=== PATIENT | female | born 1990 | race Caucasian/White ===

== ENCOUNTER → 2019-04-15 | Outpatient (REF) | payer OTHER | LOC: M LAB REF 11:34 | PROVIDERS: ATTEND Physician Assistant | DX: R50.9 Fever, unspecified (principal); R05 Cough ==

== ENCOUNTER 2020-11-11 08:09 | Inpatient (IN) | payer OTHER ==
[~2020-11-11] VITALS: Ht 167.6 cm; Wt 67.8 kg
[2020-11-11 08:46] LABS: BASO # 0.1 10^3/uL (0.0-0.2); BASO % 0.2 % (0.0-1.0); HEMATOCRIT 42.9 % (36.0-47.0); HEMOGLOBIN 14.2 g/dl (12.0-15.5); LYMPH # 1.2 10^3/uL (1.5-5.0); LYMPH % 4.3 % (24.0-44.0); MEAN CORPUSCULAR HEMOGLOBIN 32.1 pg (27.0-33.0); MEAN CORPUSCULAR HGB CONC 33.1 g/dl (32.0-36.5); MEAN CORPUSCULAR VOLUME 96.8 fl (80.0-96.0); MONO # 2.7 10^3/uL (0.0-0.8); MONO % 9.2 % (2.0-8.0); NEUTROPHILS # 24.7 10^3/uL (1.5-8.5); NEUTROPHILS % 85.2 % (36.0-66.0); PLATELET COUNT, AUTOMATED 265 10^3/uL (150-450); RED BLOOD COUNT 4.43 10^6/uL (4.00-5.40); WHITE BLOOD COUNT 28.9 10^3/uL (4.0-10.0)
[2020-11-11 09:10] LABS: HCG, SERUM QUALITATIVE NEGATIVE (NEGATIVE)
--- NOTE | 2020-11-11 09:12 | REP ---
INDICATION: Drug Overdose. COMPARISON: No comparison study. TECHNIQUE: Portable upright AP chest radiograph. FINDINGS: The lungs are well inflated and free of infiltrate. Pleural angles are sharp. Heart size is normal. Pulmonary vasculature is not increased. IMPRESSION: No active disease. <Electronically signed by Casimiro Adamson > 11/11/20 0943
[2020-11-11 09:22] LABS: ACETAMINOPHEN LEVEL < 2.0 UG/ML (10.0-30.0); ALT/SGPT 49 U/L (12-78); BILIRUBIN,DIRECT 0.1 MG/DL (0.0-0.2); BILIRUBIN,TOTAL 0.4 MG/DL (0.2-1.0); BLOOD UREA NITROGEN 11 MG/DL (7-18); CALCIUM LEVEL 8.8 MG/DL (8.5-10.1); CARBON DIOXIDE LEVEL 27 MEQ/L (21-32); CHLORIDE LEVEL 98 MEQ/L (98-107); CK-MB VALUE MASS 115.1 NG/ML (<3.6); CPK CREATINE PHOSPHOKINASE 5655 U/L (26-192); CREATININE FOR GFR 0.94 MG/DL (0.55-1.30); ETHYL ALCOHOL (ETHANOL) < 0.003 % (0.000-0.010); GLOMERULAR FILTRATION RATE > 60.0 (>60); GLUCOSE, FASTING 78 MG/DL (70-100); MB/CK RELATIVE INDEX 2.04 (< OR =4); POTASSIUM SERUM 4.3 MEQ/L (3.5-5.1); SALICYLATE LEVEL 2.8 MG/DL (5.0-30.0); SODIUM LEVEL 135 MEQ/L (136-145); THYROID STIMULATING HORMONE 0.565 uIU/ML (0.358-3.740); TOTAL PROTEIN 7.2 GM/DL (6.4-8.2); TROPONIN I 0.07 NG/ML (< 0.10)
[2020-11-11 09:28] LABS: ABG BASE EXCESS -2.5 (-2.0-2.0); ABG HCO3 21.8 MEQ/L (22.0-26.0); ABG O2 SATURATION 96.6 % (95.0-99.0); ABG PARTIAL PRESSURE CO2 36.2 mmHg (35.0-45.0); ABG PARTIAL PRESSURE O2 82.4 mmHg (75.0-100.0); ABG STANDARD HCO3 22.4 MEQ/L (22.0-26.0); ABG TOTAL CO2 22.9 MEQ/L (22.0-29.0); ABG pH (ARTERIAL) 7.398 UNITS (7.350-7.450)
[2020-11-11 09:32] LABS: RSV AMPLIFICATION NEGATIVE (NEGATIVE)
[2020-11-11] MEDS ORDERED: NS 1,000 ML IV SCH (09:35)
--- NOTE | 2020-11-11 10:12 | REPVR ---
PROCEDURE INFORMATION: Exam: CT Head Without Contrast Exam date and time: 11/11/2020 9:48 AM Age: 30 years old Clinical indication: Altered mental status/memory loss TECHNIQUE: Imaging protocol: Computed tomography of the head without contrast. Radiation optimization: All CT scans at this facility use at least one of these dose optimization techniques: automated exposure control; mA and/or kV adjustment per patient size (includes targeted exams where dose is matched to clinical indication); or iterative reconstruction. COMPARISON: No relevant prior studies available. FINDINGS: Brain: There is no acute intracranial hemorrhage. No extra-axial fluid collection. No evidence of acute infarct. Longoria white differentiation is intact. There is no evidence of mass. There is no mass effect or midline shift. Cerebral ventricles: No ventriculomegaly. Paranasal sinuses: Visualized sinuses are unremarkable. No fluid levels. Mastoid air cells: No significant mastoid effusion. Bones/joints: No acute fracture. Soft tissues: Unremarkable as visualized. IMPRESSION: No evidence of acute intracranial abnormality. No acute hemorrhage. No evidence of acute infarct or mass. Electronically signed by: Naz Maurer On 11/11/2020 10:12:11 AM
[2020-11-11] MEDS ORDERED: LEXA1TAB PO (10:36)
[2020-11-11] MEDS ORDERED: VITMTA PO (10:36)
[2020-11-11] MEDS ORDERED: ZINC1TAB2 PO (10:36)
[2020-11-11] MEDS ORDERED: HOME MED LIST COMPLETE! XX SCH (10:40)
[2020-11-11 10:59] LABS: AMPHETAMINES LEVEL URINE NEGATIVE (NEGATIVE); BARBITURATES URINE NEGATIVE (NEGATIVE); BENZODIAZEPINES URINE NEGATIVE (NEGATIVE); CANNABINOIDS URINE POSITIVE (NEGATIVE); COCAINE METABOLITE URINE POSITIVE (NEGATIVE); METHADONE URINE NEGATIVE (NEGATIVE); OPIATES URINE NEGATIVE (NEGATIVE); PHENCYCLIDINE URINE NEGATIVE (NEGATIVE)
--- NOTE | 2020-11-11 11:11 | HPEPDOC ---
[facility] Medical History & Physical Date of Admission Nov 11, 2020 Date of Service: Nov 11, 2020 History and Physical CHIEF COMPLAINT: Heroin overdose HISTORY OF PRESENT ILLNESS: Patient is a 30-year-old female with a suspected history of depression, was brought to ER by EMS. She was found by her mother on the floor unresponsive who began CPR. Upon arrival by EMS they gave her 2 mg of Narcan and revived her. Upon arrival the patient was tachycardic to 145 in sinus rhythm, blood pressure was 119/79. She was slightly hypoxic to the mid 80s and was placed on 2 L nasal cannula. She regained consciousness and has been alert and oriented speaking and answering questions appropriately. Is presently on room air 93% saturation. Patient states that she found the half bag of heroin in her sister's room and was afraid for her sister's wellbeing. She however was afraid to flush the drugs down the toilet as she was afraid it would poison the water supply. She therefore chose to snort it herself. She is visibly distressed and has intermittent bouts of crying with tears and then becomes immediately complete composed. She denies any IV drug use or sharing needles in the past. Patient denies any chest pain palpitation shortness of breath nausea vomiting diarrhea subjective fevers or chills. She however is endorsing left leg numbness extending from her left hip down to her toes. She also reports low back pain 5/10. She had a negative CT scan of the head without contrast. Patient states that she had difficulty ambulating from her bed to the bathroom. She however is voiding spontaneously without any urinary retention. She states that her left labia majora is also numb. PAST MEDICAL HISTORY: Suspected depression, polysubstance PAST SURGICAL HISTORY: She denies prior surgical history SOCIAL HISTORY: Patient denies smoking Patient denies etoh use Patient denies illicit drug use ALLERGIES: Please see below. REVIEW OF SYSTEMS: 10 point ROS was conducted, relevant findings are noted in the HPI HOME MEDICATIONS: Please see below. PHYSICAL EXAMINATION: VITAL SIGNS: please see below General: NAD, comfortable HEENT: PERRLA, EOMI, sclerae clear Neck: supple, normal ROM, no JVD Respiratory: lungs CTAB, no wheeze, no rales, no crackles CVS: RRR, normal S1, S2, no murmurs Abdo: soft, no masses, no hepatosplenomegaly, BS+, no rebound tenderness Rectal Examination: performed with female aircraft technician Devi Goff present at bedside. Normal voluntary anal tone. Preserved peroneal sensation. Extremities: no edema, pulses 2+ MSK: no joint deformities, normal ROM. Lumbar pain to palpation at ~L4-L5. Neuro: no focal neuro deficits, moving all 4 extremities, CN2-12 intact. Strenght 5/5 in bilateral upper extremities, 5/5 in R lower extremity, 4/5 L lower extremity. On re-examination, L lower extremity strength improved to 5/5 without limitation. No nystagmus. Ambulating with limp. Psych: calm, cooperative, AAO x 3 LABORATORY DATA: See below. IMAGING: Lumbar Spine MRI (11/11/20): FINDINGS: Examination is motion limited. Vertebral body height and AP alignment is preserved. There is disc desiccation and disc space narrowing at L5-S1. Degenerative endplate signal at L5-S1. Negative for discitis/osteomyelitis. No definite epidural fluid collection. Conus medullaris terminates at L1-L2. No gross pathologic intrathecal enhancement. L1-L2: No definite significant central or foraminal stenosis. L2-L3: No definite significant central or foraminal stenosis. L3-L4: No definite significant central or foraminal stenosis. L4-L5: Mild bilateral facet joint arthropathy without definite significant central canal stenosis. Suspect mild bilateral foraminal stenosis. L5-S1: [id number]-maqelcbk disc bulge and bilateral facet joint arthropathy. No significant central canal stenosis. There is moderate to severe bilateral foraminal stenosis. IMPRESSION: 1. Examination is significantly motion limited. 2. No gross acute abnormality. 3. Degenerative change most prominent L5-S1 where there is moderate to severe bilateral foraminal stenosis. 4. No significant central canal compromise throughout the lumbar spine. L Leg Venous Duplex (11/11/20) IMPRESSION: No evidence of deep vein thrombosis. MRI brain wo contrast (11/11/20): FINDINGS: Image quality is degraded by motion. Brain: There is no extra-axial collection or intra-axial mass. Normal parenchymal signal is preserved. There is no diffusion restriction. Cerebral ventricles: Normal. No ventriculomegaly. Bones/joints: Unremarkable. Paranasal sinuses: There is mild ethmoid mucosal thickening. Mastoid air cells: Normal as visualized. No mastoid effusion. Orbital cavity: Unremarkable. Soft tissues: Unremarkable. IMPRESSION: Motion degraded examination. No acute abnormality. CT head without contrast on 11/11/2020 FINDINGS: Brain: There is no acute intracranial hemorrhage. No extra-axial fluid collection. No evidence of acute infarct. Longoria white differentiation is intact. There is no evidence of mass. There is no mass effect or midline shift. Cerebral ventricles: No ventriculomegaly. Paranasal sinuses: Visualized sinuses are unremarkable. No fluid levels. Mastoid air cells: No significant mastoid effusion. Bones/joints: No acute fracture. Soft tissues: Unremarkable as visualized. IMPRESSION: No evidence of acute intracranial abnormality. No acute hemorrhage. No evidence of acute infarct or mass CXR 11/11/2020 FINDINGS: The lungs are well inflated and free of infiltrate. Pleural angles are sharp. Heart size is normal. Pulmonary vasculature is not increased. IMPRESSION: No active disease. MICROBIOLOGY: Please see below. ASSESSMENT: 30-year-old female admitted after heroin overdose and provided by rehabilitation attendant with 2 mg of Narcan intranasally. Patient displaying racing thoughts and injurious behavior. Psychiatry has been consulted. Patient will be admitted to hospitalist service. Patient also endorses left leg weakness and numbness difficulty ambulating as well as signs of peritoneal anesthesia. Due to this patient will receive an MRI of the lumbar spine with and without contrast to rule out cauda equina. . PLAN: Heroin overdose: Patient displaying self-injurious behavior, stated she was referred to poison water supply by flushing the drugs down the toilet therefore she decided to snort them instead. Patient requires one-to-one sitter. Discussed with Dr. Vann from psychiatry. Consult placed. Patient may require inpatient psychiatric admission after she is medically stable. Elevated trop: initial trop 0.07, repeat 0.12. In setting of chest compressions. EKG showing sinus tachycardia, no acute ischemic changes. Perform serial trops. No chest pain reported. Will obtain 2D echo to r/o pericardial effusion from possible cardiac contusion. Rhabdomyolysis: CK 5000. We will continue with IV hydration. We will monitor renal function with serial BMPs. Left leg numbness and weakness with signs of perineal anesthesia: Patient reports numbness in the left labia majora as well as numbness of the leg extending down from the hip to the toes. Per ER staff she was seen ambulating with a limp. Initial exam showed 4/5 strength in the L lower extremity. On re- examination 5/5 strength was seen in all 4 extremities. Even though the patient displays 5 out of 5 strength in the bed we will proceed with MRI of the lumbar spine to make sure she does not have cauda equina or a spinal abscess. 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 Rectal exam shows normal voluntary anal tone, and preserved sensation of the perineum. Patient is not experiencing fecal incontinence or urinary retention. I attempted to transfer the patient to [facility] for spinal surgery eval, ([facility] had no available beds), and discussed the findings with Dr. Nazario. I endorsed the mentioned neurological findings. Dr. Nazario believed that no red-flag symptoms are present, and patient does not require urgent surgical intervention. We will perform serial neuro exams on the lower extremities and monitor for any worsening neuro symptoms. Left tongue numbness: Patient had a negative CT scan. She has equal and bilateral pupils without slurred speech or uvula deviation P duration. However given the fact that the patient is a drug user and had a recent fall we will make sure this patient did not have an acute CVA from possible embolic stroke. Leukocytosis/SIRS: Patient was admitted with leukocytosis of 20.9. Suspect likely reactive. Meets SIRS criteria. Left shift of neutrophils 85.2%. Patient denies any subjective fever chills cough dysuria diarrhea. Blood culture sent from the ER. Will start on empiric vancomycin and cefepime until we have ruled out infection. Dispo: admission expect to last > 2 midnights Vital Signs Vital Signs Date Time Temp Pulse Resp B/P (MAP) Pulse Ox O2 Delivery O2 Flow Rate FiO2 11/11/20 09:46 110 93 11/11/20 09:45 104/56 (72) 11/11/20 08:24 97.0 20 Room Air Laboratory Data Labs 24H Laboratory Tests 2 11/11/20 08:27: Immature Granulocyte % (Auto) 1.1, Neutrophils (%) (Auto) 85.2H, Lymphocytes (%) (Auto) 4.3L, Monocytes (%) (Auto) 9.2H, Eosinophils (%) (Auto) 0.0, Basophils (%) (Auto) 0.2, Neutrophils # (Auto) 24.7H, Lymphocytes # (Auto) 1.2L, Monocytes # (Auto) 2.7H, Eosinophils # (Auto) 0.0, Basophils # (Auto) 0.1, Nucleated Red Blood Cells % (auto) 0.0, Anion Gap 10, Glomerular Filtration Rate > 60.0, Calcium Level 8.8, Total Bilirubin 0.4, Direct Bilirubin 0.1, Aspartate Amino Transf (AST/SGOT) 134H, Alanine Aminotransferase (ALT/SGPT) 49, Alkaline Phosphatase 83, Total Creatine Kinase 5655H, Creatine Kinase MB 115.1H, Creatine Kinase MB Relative Index 2.04, Troponin I 0.07, Total Protein 7.2, Albumin 4.0, Albumin/Globulin Ratio 1.3, Thyroid Stimulating Hormone (TSH) 0.565, Human Chorionic Gonadotropin, Qual NEGATIVE, Salicylates Level 2.8L, Urine Opiates Screen NEGATIVE, Urine Methadone Screen NEGATIVE, Acetaminophen Level < 2.0L, Urine Barbiturates Screen NEGATIVE, Urine Phencyclidine Screen NEGATIVE, Urine Amphetamines Screen NEGATIVE, Urine Benzodiazepines Screen NEGATIVE, Urine Cocaine Metabolite Screen POSITIVEH, Urine Cannabinoids Screen POSITIVEH, Ethyl Alcohol Level < 0.003, Coronavirus (COVID-19)(PCR) NEGATIVE, Influenza Type A (RT-PCR) NEGATIVE, Influenza Type B (RT-PCR) NEGATIVE, Respiratory Syncytial Virus (PCR) NEGATIVE 11/11/20 08:38: Bedside Glucose (Misc Panel) 82 11/11/20 09:03: Blood Gas Bicarbonate Standard 22.4, Arterial Blood pH 7.398, Arterial Blood Partial Pressure CO2 36.2, Arterial Blood Partial Pressure O2 82.4, Arterial Blood Total CO2 22.9, Arterial Blood HCO3 21.8L, Arterial Blood Base Excess - 2.5L, Arterial Blood Oxygen Saturation 96.6 CBC/BMP Laboratory Tests 11/11/20 08:27 Microbiology Microbiology 11/11/20 Blood Culture, Received Pending 11/11/20 Blood Culture, Received Pending Home Medications Scheduled Escitalopram Oxalate (Lexapro) 10 Mg Tablet, 15 MG PO DAILY Multivitamins (Thera M Plus Tablet) 1 Each Tablet, 1 TAB PO DAILY Zinc (Zinc) 50 Mg Tablet, 50 MG PO DAILY Allergies Coded Allergies: Penicillins (Verified Allergy, Unknown, UNKNOWN REACTION, 11/11/20) BLAISE GRAY MD Nov 11, 2020 11:11
--- NOTE | 2020-11-11 11:42 | ECGEPIP ---
[facility] - ED Test Date: 2020-11-11 Pat Name: CARMEN SANTANA Department: Room: - Gender: Female Grade Checker: DARION : 1990 Requested By: FLASH Lazo Order Number: [id number] Reading MD: Jaylin Uribe Measurements Intervals [place] Rate: 124 P: 79 NC: 120 QRS: 78 QRSD: 86 T: 56 QT: 332 QTc: 476 Interpretive Statements Sinus tachycardia Possible Left atrial enlargement No prior Electronically Signed on 11-11-2020 11:42:22 EDT by Jaylin Uribe
--- NOTE | 2020-11-11 11:56 | REP ---
INDICATION: L leg numbness. COMPARISON: None. TECHNIQUE: AP pelvis view. FINDINGS: The bony pelvic ring is intact. There are small bone islands in the left acetabular region and in the right ischium. Sacrum and SI joints are intact. Symphysis pubis is unremarkable. Femoral heads are smooth and rounded and hip joint space is preserved. No femoral fracture is seen. IMPRESSION: No acute bony abnormality. <Electronically signed by Casimiro Adamson > 11/11/20 [id number]
--- NOTE | 2020-11-11 11:57 | REP ---
INDICATION: L leg numbness. COMPARISON: None. TECHNIQUE: Four views of the left femur are provided. FINDINGS: The views of the left femur demonstrate normal bones, joints, and soft tissues. No fracture or subluxation is seen. No opaque foreign body noted. There is a small bone island in the left acetabulum. IMPRESSION: Negative left femur series. <Electronically signed by Casimiro Adamson > 11/11/20 0257
[2020-11-11] MEDS: NS 1,000 ML IV SCH (12:00)
[2020-11-11] MEDS ORDERED: PROHANCE 279.3MG/ML 15ML VIAL As Ordered ONE (12:32)
[2020-11-11 13:20] VITALS: BP 136/75
--- NOTE | 2020-11-11 13:33 | REPVR ---
PROCEDURE INFORMATION: Exam: MR Head Without Contrast Exam date and time: 11/11/2020 11:24 AM Age: 30 years old Clinical indication: Altered mental status/memory loss; Confusion or disorientation; Patient HX: Overdose; Additional info: L leg numbness and weakness, perineal numbness. R/O cauda eq TECHNIQUE: Imaging protocol: MR of the head without contrast. COMPARISON: CT Head without contrast 11/11/2020 9:56 AM FINDINGS: Image quality is degraded by motion. Brain: There is no extra-axial collection or intra-axial mass. Normal parenchymal signal is preserved. There is no diffusion restriction. Cerebral ventricles: Normal. No ventriculomegaly. Bones/joints: Unremarkable. Paranasal sinuses: There is mild ethmoid mucosal thickening. Mastoid air cells: Normal as visualized. No mastoid effusion. Orbital cavity: Unremarkable. Soft tissues: Unremarkable. IMPRESSION: Motion degraded examination. No acute abnormality. Electronically signed by: Ibeth Harrell On 11/11/2020 13:32:50 PM
[2020-11-11] MEDS: CEFEPIME HCL 1 GM in D5W MINI-BAG PLUS 50 ML IV SCH (14:57)
[2020-11-11] MEDS ORDERED: VANCOMYCIN HCL 1,000 MG, VIAL MATE ADAPTER 1 EACH in NS 250 ML IV ONE (15:00)
[2020-11-11 16:00] VITALS: BP 111/62
[2020-11-11] MEDS ORDERED: LORazepam 2 MG/ML VIAL IV PRN (16:15)
--- NOTE | 2020-11-11 18:08 | MHCRPDOC ---
[facility] Consultation Consultation DATE OF CONSULTATION: 11/11/20 CONSULTATION REQUESTED BY: Dr Elmo ACOSTA REASON FOR CONSULTATION: Evaluate the patient for depression and possible suicide attempt. . RELEVANT HISTORY: Her identifying data : She is a 30-year-old female living with her parents was brought to the emergency room for overdose of heroin. She is currently in PCU treated medically. History patient was evaluated staff was consulted during my evaluation. Patient is labile crying and sobbing 1 minute and then immediately becomes composed and sometimes inappropriate in her answers. She denies suicide attempt and states the reason she overdosed because she wanted to know how her sister felt when using drugs she also reports that her sister is drug user and has been using it extensively patient was brought to the emergency room she had CPR and not to revive her after her arrival she was CK2 ICU from there to PCU Patient has a history of depression she was on Lexapro 20 mg daily and the compliance of the medication is questionable patient reports she was also on Adderall she has been diagnosed with ADHD in the past ,denies any history of suicide attempt in the past she also denies any history of psychiatric hospitalizations she denies history of alcohol or drug use ,only reports She uses marijuana every day for her anxiety Mental Status Examination: Patient lying in bed with one-to-one sitter in the room she was cooperative made good eye contact psychomotor activity is increased speech is hyperverbal mood is depressed affect is labile , thought content she is preoccupied denies any suicidal homicidal ideas thought process dramatic circumstantial at times at times she is sobbing and crying suddenly she becomes composed her insight and judgment are limited her she is oriented to time place and person her attention and concentration are good her memory immediate remote recent are good. Diagnosis major depressive disorder Overdose on opioids cannabis use disorder rule out opioid dependence Assessment patient attempted overdose which almost killed her. Considering the severity of the overdose the possibility of suicide attempt cannot be ruled out Patient currently is severely depressed compliant with her medication is questionable Plan: I recommend that she be transferred to psychiatric unit once she is medically stable Continue one-to-one observation Continue Lexapro 20 mg once daily Add Seroquel 12.5 mg at night Patient can be transferred when she is medically stable. . Vital Signs Vital Signs Date Time Temp Pulse Resp B/P (MAP) Pulse Ox O2 Delivery O2 Flow Rate FiO2 9/3/21 16:00 98.5 93 16 111/62 (78) 95 Nasal Cannula 2.0 Laboratory Data 24H Labs Laboratory Tests 2 11/11/20 08:27: Immature Granulocyte % (Auto) 1.1, Neutrophils (%) (Auto) 85.2H, Lymphocytes (%) (Auto) 4.3L, Monocytes (%) (Auto) 9.2H, Eosinophils (%) (Auto) 0.0, Basophils (%) (Auto) 0.2, Neutrophils # (Auto) 24.7H, Lymphocytes # (Auto) 1.2L, Monocytes # (Auto) 2.7H, Eosinophils # (Auto) 0.0, Basophils # (Auto) 0.1, Nucleated Red Blood Cells % (auto) 0.0, Anion Gap 10, Glomerular Filtration Rate > 60.0, Calcium Level 8.8, Total Bilirubin 0.4, Direct Bilirubin 0.1, Aspartate Amino Transf (AST/SGOT) 134H, Alanine Aminotransferase (ALT/SGPT) 49, Alkaline Phosphatase 83, Total Creatine Kinase 5655H, Creatine Kinase MB 115.1H, Creatine Kinase MB Relative Index 2.04, Troponin I 0.07, Total Protein 7.2, Albumin 4.0, Albumin/Globulin Ratio 1.3, Thyroid Stimulating Hormone (TSH) 0.565, Human Chorionic Gonadotropin, Qual NEGATIVE, Salicylates Level 2.8L, Urine Opiates Screen NEGATIVE, Urine Methadone Screen NEGATIVE, Acetaminophen Level < 2.0L, Urine Barbiturates Screen NEGATIVE, Urine Phencyclidine Screen NEGATIVE, Urine Amphetamines Screen NEGATIVE, Urine Benzodiazepines Screen NEGATIVE, Urine Cocaine Metabolite Screen POSITIVEH, Urine Cannabinoids Screen POSITIVEH, Ethyl Alcohol Level < 0.003, Coronavirus (COVID-19)(PCR) NEGATIVE, Influenza Type A (RT-PCR) NEGATIVE, Influenza Type B (RT-PCR) NEGATIVE, Respiratory Syncytial Virus (PCR) NEGATIVE 11/11/20 08:38: Bedside Glucose (Misc Panel) 82 11/11/20 09:03: Blood Gas Bicarbonate Standard 22.4, Arterial Blood pH 7.398, Arterial Blood Partial Pressure CO2 36.2, Arterial Blood Partial Pressure O2 82.4, Arterial Blood Total CO2 22.9, Arterial Blood HCO3 21.8L, Arterial Blood Base Excess - 2.5L, Arterial Blood Oxygen Saturation 96.6 11/11/20 15:00: Methicillin-Resist S.aureus DNA PCR NOT DETECTED 11/11/20 15:21: Urine Color COLORLESS, Urine Appearance CLEAR, Urine pH 6.0, Urine Specific [place] 1.001L, Urine Protein NEGATIVE, Urine Glucose (UA) NEGATIVE, Urine Ketones 1+H, Urine Blood NEGATIVE, Urine Nitrite NEGATIVE, Urine Bilirubin NEGATIVE, Urine Urobilinogen 0.2, Urine Leukocyte Esterase NEGATIVE, Urine WBC (Auto) 0, Urine RBC (Auto) 0, Urine Hyaline Casts (Auto) 0, Urine Bacteria (Auto) NEGATIVE, Urine Squamous Epithelial Cells 0, Urine Sperm (Auto) Home Medications Current Medications Current Medications Medications (Trade) Dose Ordered Sig/Juanjo Route PRN Reason Start Time Stop Time Status Last Admin Dose Admin Cefepime HCl 1 gm/ Dextrose 50 ml @ 100 mls/hr Q12H IV 11/11/20 14:00 11/11/20 14:57 Escitalopram Oxalate (Lexapro) 15 mg DAILY PO 11/12/20 09:00 Home Med (Home Med List Complete!) ASDIRECTED XX 11/11/20 10:40 11/11/20 10:40 DC Lorazepam (Ativan) 1 mg Q15MP PRN IV ANXIETY/AGITATION 11/11/20 16:15 Multivitamins (Theragram-M) 1 tab DAILY PO 11/12/20 09:00 Sodium Chloride 1,000 ml @ 125 mls/hr Q8H IV 11/11/20 12:00 11/11/20 12:00 Sodium Chloride 1,000 ml @ 150 mls/hr Q6H40M IV 11/11/20 09:35 11/11/20 12:03 DC 11/11/20 09:51 Vancomycin HCl 1000 mg/IV Miscellaneous Supplies 1 each/ Sodium Chloride 270 ml @ 270 mls/hr Q8H IV 11/11/20 19:00 Scheduled Escitalopram Oxalate (Lexapro) 10 Mg Tablet, 15 MG PO DAILY, (Reported) Multivitamins (Thera M Plus Tablet) 1 Each Tablet, 1 TAB PO DAILY, (Reported) Zinc (Zinc) 50 Mg Tablet, 50 MG PO DAILY, (Reported) Allergies Coded Allergies: Penicillins (Verified Allergy, Unknown, UNKNOWN REACTION, 11/11/20) JEREMIAS STARKEY MD Nov 11, 2020 18:08
[2020-11-11] MEDS: VANCOMYCIN HCL 1,000 MG, VIAL MATE ADAPTER 1 EACH in NS 250 ML IV SCH (18:38)
[2020-11-11 20:00] VITALS: BP 110/62
--- NOTE | 2020-11-11 20:04 | REPVR ---
PROCEDURE INFORMATION: Exam: MR Lumbar Spine Without and With Contrast Exam date and time: 11/11/2020 7:33 PM Age: 30 years old Clinical indication: Numbness; Additional info: L leg numbness and weakness, perineal numbness. R/O cauda eq TECHNIQUE: Imaging protocol: Multiplanar magnetic resonance images of the lumbar spine without and with intravenous contrast. Contrast material: PROHANCE; Contrast volume: 14 ml; Contrast route: INTRAVENOUS (IV); COMPARISON: CR Pelvis, complete 11/11/2020 11:25 AM FINDINGS: Examination is motion limited. Vertebral body height and AP alignment is preserved. There is disc desiccation and disc space narrowing at L5-S1. Degenerative endplate signal at L5-S1. Negative for discitis/osteomyelitis. No definite epidural fluid collection. Conus medullaris terminates at L1-L2. No gross pathologic intrathecal enhancement. L1-L2: No definite significant central or foraminal stenosis. L2-L3: No definite significant central or foraminal stenosis. L3-L4: No definite significant central or foraminal stenosis. L4-L5: Mild bilateral facet joint arthropathy without definite significant central canal stenosis. Suspect mild bilateral foraminal stenosis. L5-S1: Nytt-sk-wkdhfkwz disc bulge and bilateral facet joint arthropathy. No significant central canal stenosis. There is moderate to severe bilateral foraminal stenosis. IMPRESSION: 1. Examination is significantly motion limited. 2. No gross acute abnormality. 3. Degenerative change most prominent L5-S1 where there is moderate to severe bilateral foraminal stenosis. 4. No significant central canal compromise throughout the lumbar spine. Electronically signed by: Kilo Brambila On 11/11/2020 20:04:40 PM
[2020-11-11] MEDS: QUEtiapine FUMARATE 12.5 MG HALF-TAB PO SCH (21:05)
[2020-11-11] MEDS ORDERED: ACETAMINOPHEN TAB 650MG DOSE (2X325MG) PO ONE (21:25)
[2020-11-11] MEDS ORDERED: ASPIRIN 325 MG TAB PO ONE (21:55)
--- NOTE | 2020-11-11 22:23 | REPVR ---
PROCEDURE INFORMATION: Exam: US Duplex Left Lower Extremity Veins, Limited Exam date and time: 11/11/2020 10:06 PM Age: 30 years old Clinical indication: Pain; Leg, upper; Left; Additional info: Pain and numbness in left leg TECHNIQUE: Imaging protocol: Real-time Duplex ultrasound of the Left Lower Extremity with 2-D way scale, color Doppler flow and spectral waveform analysis with image documentation. Limited exam focused on the left lower extremity veins. COMPARISON: No relevant prior studies available. FINDINGS: Left deep veins: Unremarkable. The common femoral, femoral, proximal profunda femoral and popliteal veins are patent without thrombus. Normal Doppler waveforms. Normal compressibility and/or augmentation response. Left superficial veins: Unremarkable. Saphenofemoral junction is patent without thrombus. Soft tissues: Unremarkable. IMPRESSION: No evidence of deep vein thrombosis. Electronically signed by: Kilo Brambila On 11/11/2020 22:23:39 PM
[2020-11-12] VITALS: BP 96/55
[2020-11-12] MEDS: NS 1,000 ML IV SCH ×4 (01:54→23:19)
[2020-11-12] MEDS: CEFEPIME HCL 1 GM in D5W MINI-BAG PLUS 50 ML IV SCH ×2 (01:59→15:07)
[2020-11-12] MEDS: VANCOMYCIN HCL 1,000 MG, VIAL MATE ADAPTER 1 EACH in NS 250 ML IV SCH ×3 (02:56→18:31)
[2020-11-12 04:00] VITALS: BP 98/60
[2020-11-12 06:23] LABS: BASO % 0.3 % (0.0-1.0); EOS # 0.2 10^3/uL (0.0-0.5); EOS % 1.3 % (0.0-3.0); HEMATOCRIT 35.7 % (36.0-47.0); LYMPH # 2.4 10^3/uL (1.5-5.0); LYMPH % 18.2 % (24.0-44.0); MEAN CORPUSCULAR HEMOGLOBIN 31.4 pg (27.0-33.0); MEAN CORPUSCULAR HGB CONC 32.8 g/dl (32.0-36.5); MEAN CORPUSCULAR VOLUME 95.7 fl (80.0-96.0); MONO # 1.4 10^3/uL (0.0-0.8); MONO % 10.3 % (2.0-8.0); NEUTROPHILS # 9.2 10^3/uL (1.5-8.5); NEUTROPHILS % 69.5 % (36.0-66.0); PLATELET COUNT, AUTOMATED 215 10^3/uL (150-450); RED BLOOD COUNT 3.73 10^6/uL (4.00-5.40); WHITE BLOOD COUNT 13.2 10^3/uL (4.0-10.0)
[2020-11-12 06:43] LABS: HEMOGLOBIN 11.7 g/dl (12.0-15.5)
[2020-11-12 07:16] LABS: ALBUMIN 2.8 GM/DL (3.2-5.2); ALT/SGPT 104 U/L (12-78); BILIRUBIN,TOTAL 0.6 MG/DL (0.2-1.0); BLOOD UREA NITROGEN 4 MG/DL (7-18); CALCIUM LEVEL 7.8 MG/DL (8.5-10.1); CARBON DIOXIDE LEVEL 29 MEQ/L (21-32); CHLORIDE LEVEL 109 MEQ/L (98-107); CPK CREATINE PHOSPHOKINASE 8881 U/L (26-192); CREATININE FOR GFR 0.54 MG/DL (0.55-1.30); GLOMERULAR FILTRATION RATE > 60.0 (>60); GLUCOSE, FASTING 86 MG/DL (70-100); SODIUM LEVEL 141 MEQ/L (136-145); TOTAL PROTEIN 5.2 GM/DL (6.4-8.2)
[2020-11-12 08:18] VITALS: BP 95/53
[2020-11-12] MEDS: ESCITALOPRAM OXALATE 5MG TABLET (LEXAPRO) PO SCH (09:37)
[2020-11-12] MEDS: MULTIVITAMINS/MINERALS THERAP 1 TAB PO SCH (09:37)
--- NOTE | 2020-11-12 10:35 | REP ---
INDICATION: transaminitis. COMPARISON: None. TECHNIQUE: Ultrasound evaluation of the abdomen in multiple projections was performed. FINDINGS: The liver, gallbladder, pancreas and right kidney are unremarkable. The right kidney measures 10.7 x 4.5 x 3.7 cm. The common bile duct measures 3 mm in diameter. IMPRESSION: Normal limited abdominal ultrasound. <Electronically signed by Tiburcio Castro > 11/12/20 [id number]
[2020-11-12] MEDS: MAGIC MOUTHWASH SUSPENSION BTL SSP PRN ×2 (11:19→20:34)
[2020-11-12 11:37] VITALS: BP 119/73
--- NOTE | 2020-11-12 12:46 | IPNPDOC ---
Date Seen The patient was seen on 11/12/20. Progress Note SUBJECTIVE: Patient was seen examined at bedside. She is doing well. She is seen ambulating independently this morning with a slight limp. She tells me that she clearly has experienced an improvement in her left leg sensation she feels temperature and she feels pressure/touch. Her left labial numbness has resolved. Patient continues to have full control of bladder function and bowel function. She experiences no incontinence or retention of either. Patient states that her back pain has also resolved. Her tongue numbness is also resolved. She denies any chest pain palpitation shortness of breath fever chills. OBJECTIVE PHYSICAL EXAMINATION: VITAL SIGNS: please see below General: NAD, comfortable HEENT: PERRLA, EOMI, sclerae clear Neck: supple, normal ROM, no JVD Respiratory: lungs CTAB, no wheeze, no rales, no crackles CVS: RRR, normal S1, S2, no murmurs Abdo: soft, no masses, no hepatosplenomegaly, BS+, no rebound tenderness Extremities: no edema, pulses 2+ MSK: no joint deformities, normal ROM Neuro: no focal neuro deficits, moving all 4 extremities, CN2-12 intact. Stren gth 5/5 in all 4 extremities. There is slightly reduced sensation in the left leg extending from the hip down to the toes since his temperature. Senses fine touch. No nystagmus. Psych: calm, cooperative, AAO x 3 LABORATORY DATA, IMAGING STUDIES, MICROBIOLOGY: Please see below. Echocardiogram: Ordered on 11/12/2020. DVT prophylaxis ordered?: Yes, mechanical ASSESSMENT AND PLAN: ASSESSMENT: 30-year-old female admitted after heroin overdose and provided by chip person with 2 mg of Narcan intranasally. Patient displaying racing thoughts and injurious behavior. Psychiatry has been consulted. Patient will be admitted to hospitalist service. Patient also endorses left leg weakness and numbness difficulty ambulating as well as signs of peritoneal anesthesia. Due to this patient will receive an MRI of the lumbar spine with and without contrast to rule out cauda equina. . PLAN: Heroin overdose: Patient displaying self-injurious behavior, stated she was referred to poison water supply by flushing the drugs down the toilet therefore she decided to snort them instead. Patient requires one-to-one sitter. Discussed with Dr. Vann from psychiatry. Consult placed. Patient may require inpatient psychiatric admission after she is medically stable. Elevated trop: initial trop 0.07, repeat 0.12. In setting of chest compressions. EKG showing sinus tachycardia, no acute ischemic changes. Perform serial trops. No chest pain reported. Will obtain 2D echo to r/o pericardial effusion from p ossible cardiac contusion. Discussed with Dr. Zacarias, stat echo ordered. Rhabdomyolysis: CK 5000 increased to 8881. We will continue with IV hydration. We will monitor renal function with serial BMPs. Left leg numbness and weakness with signs of perineal anesthesia: Patient reports numbness in the left labia majora as well as numbness of the leg extending down from the hip to the toes. Per ER staff she was seen ambulating with a limp. Initial exam showed 4/5 strength in the L lower extremity. On re- examination 5/5 strength was seen in all 4 extremities. Even though the patient displays 5 out of 5 strength in the bed we will proceed with MRI of the lumbar spine to make sure she does not have cauda equina or a spinal abscess. 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 Rectal exam shows normal voluntary anal tone, and preserved sensation of the perineum. Patient is not experiencing fecal incontinence or urinary retention. I attempted to transfer the patient to [facility] for spinal surgery eval, ([facility] had no available beds), and discussed the findings with Dr. Nazario. I endorsed the mentioned neurological findings. Dr. Nazario believed that no red-flag symptoms are present, and patient does not require urgent surgical intervention. We will perform serial neuro exams on the lower extremities and monitor for any worsening neuro symptoms. Reexamination on 11/12/2020, patient states that her numbness in the left leg has improved. Her left labial numbness has resolved. She has 5 out of 5 strength bilaterally. And continues to have full control of her urine and her bowels. No retention or incontinence of both. I discussed this once again with Dr. Nazario at [facility], Department of neurosurgery. He recommends no need for acute transfer for surgical intervention. Recommends referral to outpatient neurosurgery clinic. Left tongue numbness: Patient had a negative CT scan. She has equal and bilateral pupils without slurred speech or uvula deviation P duration. However given the fact that the patient is a drug user and had a recent fall we will make sure this patient did not have an acute CVA from possible embolic stroke. Numbness resolved Leukocytosis/SIRS: Patient was admitted with leukocytosis of 20.9. Suspect likely reactive. Meets SIRS criteria. Left shift of neutrophils 85.2%. Patient denies any subjective fever chills cough dysuria diarrhea. Blood culture sent from the ER. Will start on empiric vancomycin and cefepime until we have ruled out infection. Dispo: admission expect to last > 2 midnights VS, I&O, 24H, Fishbone Vital Signs/I&O Vital Signs Date Time Temp Pulse Resp B/P (MAP) Pulse Ox O2 Delivery O2 Flow Rate FiO2 11/12/20 11:37 98.6 88 18 119/73 (88) 92 Room Air 11/12/20 04:00 2.0 I&O- Last 24 Hours up to 6 AM 11/12/20 06:00 Intake Total 2680 ml Output Total 2200 ml Balance 480 ml Laboratory Data 24H LABS Laboratory Tests 2 11/11/20 15:00: Methicillin-Resist S.aureus DNA PCR NOT DETECTED 11/11/20 15:21: Urine Color COLORLESS, Urine Appearance CLEAR, Urine pH 6.0, Urine Specific Berkey 1.001L, Urine Protein NEGATIVE, Urine Glucose (UA) NEGATIVE, Urine Ke tones 1+H, Urine Blood NEGATIVE, Urine Nitrite NEGATIVE, Urine Bilirubin NEGATIVE, Urine Urobilinogen 0.2, Urine Leukocyte Esterase NEGATIVE, Urine WBC (Auto) 0, Urine RBC (Auto) 0, Urine Hyaline Casts (Auto) 0, Urine Bacteria (Auto) NEGATIVE, Urine Squamous Epithelial Cells 0, Urine Sperm (Auto) 11/11/20 20:11: Troponin I 0.11#H 11/11/20 23:25: Troponin I 0.10 11/12/20 04:52: Immature Granulocyte % (Auto) 0.4, Neutrophils (%) (Auto) 69.5H, Lymphocytes (%) (Auto) 18.2L, Monocytes (%) (Auto) 10.3H, Eosinophils (%) (Auto) 1.3, Basophils (%) (Auto) 0.3, Neutrophils # (Auto) 9.2H, Lymphocytes # (Auto) 2.4, Monocytes # (Auto) 1.4H, Eosinophils # (Auto) 0.2, Basophils # (Auto) 0.0, Nucleated Red Blood Cells % (auto) 0.0, Anion Gap 3L, Glomerular Filtration Rate > 60.0, Calcium Level 7.8L, Magnesium Level 2.0, Total Bilirubin 0.6, Aspartate Amino Transf (AST/SGOT) 322H, Alanine Aminotransferase (ALT/SGPT) 104H, Alkaline Phosphatase 52, Total Creatine Kinase 8881H, Total Protein 5.2#L, Albumin 2.8#L, Albumin/Globulin Ratio 1.2 CBC/BMP Laboratory Tests 11/12/20 04:52 Microbiology Microbiology 11/11/20 Blood Culture - Preliminary, Resulted No growth after 24 hours . All specim... 11/11/20 Blood Culture - Preliminary, Resulted No growth after 24 hours . All specim... BLAISE GRAY MD Nov 12, 2020 12:46
[2020-11-12 15:40] VITALS: BP 118/74
--- NOTE | 2020-11-12 18:45 | ECGEPIP ---
[facility] Test Date: 2020-11-11 Pat Name: CARMEN SANTANA Department: Room: [place] [address] Gender: Female No Experience: [place] : 1990 Requested By: BLAISE GRAY Order Number: [id number] Reading MD: Gibran Diamond Measurements Intervals [place] Rate: 101 P: 77 LA: 114 QRS: 80 QRSD: 88 T: 51 QT: 352 QTc: 456 Interpretive Statements Sinus tachycardia Otherwise normal EKG No significant change when compared to prior tracing of 11/11/2020 at 08:27 Electronically Signed on 11-12-2020 18:44:47 EDT by Gibran Diamond
[2020-11-12 20:00] VITALS: BP 123/85
[2020-11-12] MEDS: QUEtiapine FUMARATE 12.5 MG HALF-TAB PO SCH (20:34)
--- NOTE | 2020-11-12 23:56 | ECHO ---
ECHOCARDIOGRAM DATE OF PROCEDURE: 11/12/2020 Age: 30 Gender: Female Height: 168 cm Weight: 71 kg REFERRING PHYSICIAN: Dr. Elmo Camarena INDICATION: Abnormal EKG MEASUREMENTS: IVS 0.8 cm LV 4.4 cm LVPW 0.9 cm LA 2.9 cm Aorta 2.6 cm Left atrium volume index 17 IVC 2.4 cm Mitral E wave velocity 80 A wave 40 E prime septal 15 E prime lateral 23 FINDINGS: This study is of fair technical quality. Patient is in sinus rhythm with ventricular rate around 100 beats per minute. Left ventricle is normal size and overall normal systolic function, estimated LVEF 60-65%. No segmental wall motion abnormalities are appreciated. Right ventricle also has normal size and systolic function. Both atria are normal. Aortic, mitral and tricuspid valves appear normal. The pulmonic valve was not well seen. No pericardial effusion is noted. Inferior vena cava is dilated and has no appreciable collapse with inspiration, indicative of elevated central venous pressure. Doppler interrogation revealed competent aortic valve, trace mitral and tricuspid insufficiency. Mitral inflow pattern and tissue Doppler imaging of mitral annulus revealed normal diastolic function. CONCLUSIONS: 1. This study is of fair but adequate technical quality, underlying sinus rhythm with ventricular rate around 100 beats per minute. 2. Normal LV size, systolic and diastolic function. 3. No significant valvular disease. 4. Likely elevated central venous pressure. 5. Unable to estimate pulmonary artery pressure, but no signs to suggest pulmonary hypertension. MTDD
[2020-11-13] MEDS: CEFEPIME HCL 1 GM in D5W MINI-BAG PLUS 50 ML IV SCH ×2 (02:01→13:49)
[2020-11-13] MEDS: VANCOMYCIN HCL 1,000 MG, VIAL MATE ADAPTER 1 EACH in NS 250 ML IV SCH ×3 (03:13→18:58)
[2020-11-13 04:00] VITALS: BP 126/81
[2020-11-13 05:24] LABS: BASO # 0.1 10^3/uL (0.0-0.2); BASO % 0.5 % (0.0-1.0); EOS # 0.3 10^3/uL (0.0-0.5); EOS % 2.5 % (0.0-3.0); HEMATOCRIT 38.3 % (36.0-47.0); HEMOGLOBIN 12.6 g/dl (12.0-15.5); LYMPH # 3.1 10^3/uL (1.5-5.0); MEAN CORPUSCULAR HEMOGLOBIN 31.4 pg (27.0-33.0); MEAN CORPUSCULAR HGB CONC 32.9 g/dl (32.0-36.5); MEAN CORPUSCULAR VOLUME 95.5 fl (80.0-96.0); MONO # 1.1 10^3/uL (0.0-0.8); MONO % 8.8 % (2.0-8.0); NEUTROPHILS # 8.3 10^3/uL (1.5-8.5); NEUTROPHILS % 63.7 % (36.0-66.0); PLATELET COUNT, AUTOMATED 227 10^3/uL (150-450); RED BLOOD COUNT 4.01 10^6/uL (4.00-5.40)
[2020-11-13 06:09] LABS: ALBUMIN 2.7 GM/DL (3.2-5.2); ALT/SGPT 103 U/L (12-78); BILIRUBIN,TOTAL 0.7 MG/DL (0.2-1.0); BLOOD UREA NITROGEN 2 MG/DL (7-18); CALCIUM LEVEL 8.2 MG/DL (8.5-10.1); CARBON DIOXIDE LEVEL 30 MEQ/L (21-32); CHLORIDE LEVEL 111 MEQ/L (98-107); CPK CREATINE PHOSPHOKINASE 5907 U/L (26-192); CREATININE FOR GFR 0.49 MG/DL (0.55-1.30); GLOMERULAR FILTRATION RATE > 60.0 (>60); GLUCOSE, FASTING 82 MG/DL (70-100); POTASSIUM SERUM 3.9 MEQ/L (3.5-5.1); SODIUM LEVEL 144 MEQ/L (136-145); TOTAL PROTEIN 5.6 GM/DL (6.4-8.2)
[2020-11-13 07:56] VITALS: BP 127/81
[2020-11-13] MEDS: MULTIVITAMINS/MINERALS THERAP 1 TAB PO SCH (08:42)
[2020-11-13] MEDS: ESCITALOPRAM OXALATE 5MG TABLET (LEXAPRO) PO SCH (08:42)
[2020-11-13] MEDS ORDERED: NICOTINE 7 MG/24 HR TRANSDERMAL TD SCH (09:00)
[2020-11-13] MEDS: NS 1,000 ML IV SCH ×2 (10:34→12:00)
[2020-11-13 11:01] VITALS: BP 126/81
--- NOTE | 2020-11-13 11:53 | IPNPDOC ---
Date Seen The patient was seen on 11/13/20. Progress Note SUBJECTIVE: Patient was seen examined at bedside. She is doing well. Patient ambulating independently. She states that her left leg numbness has entirely resolved. She states that she has baseline strength and sensation. She denies any chest pain palpitations shortness of breath nausea vomiting or diarrhea. OBJECTIVE PHYSICAL EXAMINATION: VITAL SIGNS: please see below General: NAD, comfortable HEENT: PERRLA, EOMI, sclerae clear Neck: supple, normal ROM, no JVD Respiratory: lungs CTAB, no wheeze, no rales, no crackles CVS: RRR, normal S1, S2, no murmurs Abdo: soft, no masses, no hepatosplenomegaly, BS+, no rebound tenderness Extremities: no edema, pulses 2+ MSK: no joint deformities, normal ROM Neuro: no focal neuro deficits, moving all 4 extremities, CN2-12 intact. Strength 5/5 in all 4 extremities. There is slightly reduced sensation in the left leg extending from the hip down to the toes since his temperature. Senses fine touch. No nystagmus. Psych: calm, cooperative, AAO x 3 LABORATORY DATA, IMAGING STUDIES, MICROBIOLOGY: Please see below. Echocardiogram: Ordered on 11/12/2020. DVT prophylaxis ordered?: Yes, mechanical ASSESSMENT AND PLAN: ASSESSMENT: 30-year-old female admitted after heroin overdose and provided by bias machine operator helper with 2 mg of Narcan intranasally. Patient displaying racing thoughts and injurious behavior. Psychiatry has been consulted. Patient will be admitted to hospitalist service. Patient also endorses left leg weakness and numbness difficulty ambulating as well as signs of peritoneal anesthesia. Due to this patient will receive an MRI of the lumbar spine with and without contrast to rule out cauda equina. . PLAN: Heroin overdose: Patient displaying self-injurious behavior, stated she was referred to poison water supply by flushing the drugs down the toilet therefore she decided to snort them instead. Patient requires one-to-one sitter. Discussed with Dr. Vann from psychiatry. Consult placed. Patient may require inpatient psychiatric admission after she is medically stable. Elevated trop: initial trop 0.07, repeat 0.11, 0.10. In setting of chest compressions. EKG showing sinus tachycardia, no acute ischemic changes. Perform serial trops. No chest pain reported. Will obtain 2D echo to r/o pericardial effusion from possible cardiac contusion. Teslascan has reviewed the echocardiogram states no abnormalities noted. Patient has no chest pain tachycardia has resolved. Rhabdomyolysis: CK 5000 increased to 8881. We will continue with IV hydration. We will monitor renal function with serial BMPs. Left leg numbness and weakness with signs of perineal anesthesia: Patient reports numbness in the left labia majora as well as numbness of the leg extending down from the hip to the toes. Per ER staff she was seen ambulating with a limp. Initial exam showed 4/5 strength in the L lower extremity. On re- examination 5/5 strength was seen in all 4 extremities. Even though the patient displays 5 out of 5 strength in the bed we will proceed with MRI of the lumbar spine to make sure she does not have cauda equina or a spinal abscess. MRI lumbar spine showing moderate to severe bilateral foraminal stenosis at L5-S1 l evel. Rectal exam shows normal voluntary anal tone, and preserved sensation of the perineum. Patient is not experiencing fecal incontinence or urinary retention. I attempted to transfer the patient to [facility] for spinal surgery eval, ([facility] had no available beds), and discussed the findings with Dr. Nazario. I endorsed the mentioned neurological findings. Dr. Nazario believed that no red-flag symptoms are present, and patient does not require urgent surgical intervention. We will perform serial neuro exams on the lower extremities and monitor for any worsening neuro symptoms. Reexamination on 11/12/2020, patient states that her numbness in the left leg has improved. Her left labial numbness has resolved. She has 5 out of 5 strength bilaterally. And continues to have full control of her urine and her bowels. No retention or incontinence of both. I discussed this once again with Dr. Nazario at [facility], Department of neurosurgery. He recommends no need for acute transfer for surgical intervention. Recommends referral to outpatient neurosurg yoly clinic. Patient's numbness of the left leg and left labia have resolved entirely. She has preserved 5 out of 5 strength Left tongue numbness: Patient had a negative CT scan. She has equal and bilateral pupils without slurred speech or uvula deviation P duration. However given the fact that the patient is a drug user and had a recent fall we will make sure this patient did not have an acute CVA from possible embolic stroke. Numbness resolved Leukocytosis/SIRS: Patient was admitted with leukocytosis of 20.9. Suspect likely reactive. Meets SIRS criteria. Left shift of neutrophils 85.2%. Patient denies any subjective fever chills cough dysuria diarrhea. Blood culture sent from the ER. Will start on empiric vancomycin and cefepime until we have ruled out infection. Dispo: admission expect to last > 2 midnights VS, I&O, 24H, Fishbone Vital Signs/I&O Vital Signs Date Time Temp Pulse Resp B/P (MAP) Pulse Ox O2 Delivery O2 Flow Rate FiO2 11/13/20 11:01 98.2 95 18 126/81 (96) 96 Room Air 11/12/20 04:00 2.0 I&O- Last 24 Hours up to 6 AM 11/13/20 06:00 Intake Total 3930 ml Output Total 1200 ml Balance 2730 ml Laboratory Data 24H LABS Laboratory Tests 2 11/12/20 18:02: Vancomycin Level Trough 13.3 11/13/20 04:58: Immature Granulocyte % (Auto) 0.5, Neutrophils (%) (Auto) 63.7, Lymphocytes (%) (Auto) 24.0, Monocytes (%) (Auto) 8.8H, Eosinophils (%) (Auto) 2.5, Basophils (%) (Auto) 0.5, Neutrophils # (Auto) 8.3, Lymphocytes # (Auto) 3.1, Monocytes # (Auto) 1.1H, Eosinophils # (Auto) 0.3, Basophils # (Auto) 0.1, Nucleated Red Blood Cells % (auto) 0.0, Anion Gap 3L, Glomerular Filtration Rate > 60.0, Calcium Level 8.2L, Magnesium Level 2.0, Total Bilirubin 0.7, Aspartate Amino Transf (AST/SGOT) 211H, Alanine Aminotransferase (ALT/SGPT) 103H, Alkaline Phosphatase 59, Total Creatine Kinase 5907H, Total Protein 5.6L, Albumin 2.7L, Albumin/Globulin Ratio 0.9L CBC/BMP Laboratory Tests 11/13/20 04:58 Microbiology Microbiology 11/11/20 Blood Culture - Preliminary, Resulted No Growth after 48 hours. All Specime... 11/11/20 Blood Culture - Preliminary, Resulted No Growth after 48 hours. All Specime... BLAISE GRAY MD Nov 13, 2020 11:53
[2020-11-13 15:22] VITALS: BP 138/92
[2020-11-13 20:00] VITALS: BP 142/96
[2020-11-13] MEDS: RAMELTEON 8 MG TAB (ROZEREM) PO PRN (21:44)
[2020-11-13] MEDS: QUEtiapine FUMARATE 12.5 MG HALF-TAB PO SCH (21:44)
[2020-11-14] VITALS: BP 118/75
[2020-11-14] MEDS: CEFEPIME HCL 1 GM in D5W MINI-BAG PLUS 50 ML IV SCH (02:11)
[2020-11-14] MEDS: VANCOMYCIN HCL 1,000 MG, VIAL MATE ADAPTER 1 EACH in NS 250 ML IV SCH (03:02)
[2020-11-14 04:00] VITALS: BP 121/87
[2020-11-14 06:06] LABS: BASO # 0.1 10^3/uL (0.0-0.2); BASO % 0.7 % (0.0-1.0); EOS # 0.3 10^3/uL (0.0-0.5); HEMATOCRIT 38.5 % (36.0-47.0); HEMOGLOBIN 12.9 g/dl (12.0-15.5); LYMPH # 2.5 10^3/uL (1.5-5.0); LYMPH % 22.9 % (24.0-44.0); MEAN CORPUSCULAR HEMOGLOBIN 31.2 pg (27.0-33.0); MEAN CORPUSCULAR HGB CONC 33.5 g/dl (32.0-36.5); MEAN CORPUSCULAR VOLUME 93.2 fl (80.0-96.0); MONO # 1.1 10^3/uL (0.0-0.8); MONO % 9.9 % (2.0-8.0); NEUTROPHILS # 6.9 10^3/uL (1.5-8.5); NEUTROPHILS % 63.1 % (36.0-66.0); PLATELET COUNT, AUTOMATED 263 10^3/uL (150-450); RED BLOOD COUNT 4.13 10^6/uL (4.00-5.40)
[2020-11-14 06:41] LABS: ALBUMIN 2.9 GM/DL (3.2-5.2); ALT/SGPT 95 U/L (12-78); BILIRUBIN,TOTAL 0.8 MG/DL (0.2-1.0); BLOOD UREA NITROGEN 4 MG/DL (7-18); CALCIUM LEVEL 8.4 MG/DL (8.5-10.1); CARBON DIOXIDE LEVEL 28 MEQ/L (21-32); CHLORIDE LEVEL 111 MEQ/L (98-107); CPK CREATINE PHOSPHOKINASE 3896 U/L (26-192); CREATININE FOR GFR 0.47 MG/DL (0.55-1.30); GLOMERULAR FILTRATION RATE > 60.0 (>60); GLUCOSE, FASTING 89 MG/DL (70-100); MAGNESIUM LEVEL 1.9 MG/DL (1.8-2.4); POTASSIUM SERUM 3.8 MEQ/L (3.5-5.1); SODIUM LEVEL 144 MEQ/L (136-145); TOTAL PROTEIN 5.7 GM/DL (6.4-8.2)
[2020-11-14] MEDS ORDERED: ISOVUE-370 76% 100ML VIAL As Ordered ONE (07:46)
[2020-11-14 07:52] VITALS: BP 131/81
--- NOTE | 2020-11-14 08:40 | REPVR ---
PROCEDURE INFORMATION: Exam: CTA Chest With Contrast Exam date and time: 11/14/2020 8:13 AM Age: 30 years old Clinical indication: Pain; Chest pressure; Additional info: R/O pe, HX of chest compression S/P drug od TECHNIQUE: Imaging protocol: Computed tomographic angiography of the chest with contrast. 3D rendering (Not supervised by radiologist): MIP reconstructed images were created by the technologist. Radiation optimization: All CT scans at this facility use at least one of these dose optimization techniques: automated exposure control; mA and/or kV adjustment per patient size (includes targeted exams where dose is matched to clinical indication); or iterative reconstruction. Contrast material: ISOVUE 370; Contrast volume: 75 ml; Contrast route: INTRAVENOUS (IV); COMPARISON: CR PORTABLE CHEST X-RAY 11/11/2020 8:56 AM FINDINGS: Pulmonary arteries: No pulmonary artery embolism identified. Aorta: No aortic aneurysm. No aortic dissection. Lungs: Central patchy airspace opacities left upper lobe and lingula. Pleural spaces: No pneumothorax. No pleural effusion. Heart: Normal. No pericardial effusion. Lymph nodes: No enlarged lymph nodes. Bones/joints: Unremarkable. No acute fracture. Soft tissues: Unremarkable. IMPRESSION: 1. No pulmonary artery embolism identified. 2. Central patchy airspace opacities left upper lobe and lingula. Pneumonitis is difficult to exclude. Clinical correlation is recommended. Electronically signed by: Robin Rojas On 11/14/2020 08:40:33 AM
--- NOTE | 2020-11-14 08:59 | REP ---
INDICATION: r/o dvt. COMPARISON: None. TECHNIQUE: 2D and pulse duplex and color Doppler evaluation of the right lower extremity venous system was performed. FINDINGS: Thorough evaluation of the deep venous system of the right lower extremity reveals no evidence of deep venous thrombosis. IMPRESSION: No evidence of deep venous thrombosis of the right lower extremity. <Electronically signed by Tiburcio Castro > 11/14/20 [id number]
[2020-11-14] MEDS: MULTIVITAMINS/MINERALS THERAP 1 TAB PO SCH (09:20)
[2020-11-14] MEDS: ESCITALOPRAM OXALATE 5MG TABLET (LEXAPRO) PO SCH (09:20)
[2020-11-14 12:00] VITALS: BP 129/81
--- NOTE | 2020-11-14 12:34 | IPNPDOC ---
Date Seen The patient was seen on 11/14/20. Progress Note SUBJECTIVE: Patient was seen examined at bedside. She is doing well. Patient ambulating independently. She states that her left leg numbness has entirely resolved. She states that she has baseline strength and sensation. She denies any chest pain palpitations shortness of breath nausea vomiting or diarrhea. OBJECTIVE PHYSICAL EXAMINATION: VITAL SIGNS: please see below General: NAD, comfortable HEENT: PERRLA, EOMI, sclerae clear Neck: supple, normal ROM, no JVD Respiratory: lungs CTAB, no wheeze, no rales, no crackles CVS: RRR, normal S1, S2, no murmurs Abdo: soft, no masses, no hepatosplenomegaly, BS+, no rebound tenderness Extremities: no edema, pulses 2+ MSK: no joint deformities, normal ROM Neuro: no focal neuro deficits, moving all 4 extremities, CN2-12 intact. Strength 5/5 in all 4 extremities. Intact sensation of both lower extremity to both final coarse touch. Has no limitation in range of motion. Psych: calm, cooperative, AAO x 3 LABORATORY DATA, IMAGING STUDIES, MICROBIOLOGY: Please see below. CT angio chest on 11/14/20: 1. No pulmonary artery embolism identified. 2. Central patchy airspace opacities left upper lobe and lingula. Pneumonitis is difficult to exclude. Clinical correlation is recommended. RLE venous duplex (11/14/20): No evidence of deep venous thrombosis of the right lower extremity. Echo from 11/12/20: 1. This study is of fair but adequate technical quality, underlying sinus rhythm with ventricular rate around 100 beats per minute. 2. Normal LV size, systolic and diastolic function. 3. No significant valvular disease. 4. Likely elevated central venous pressure. 5. Unable to estimate pulmonary artery pressure, but no signs to suggest pulmonary hypertension. DVT prophylaxis ordered?: Yes, mechanical ASSESSMENT AND PLAN: ASSESSMENT: 30-year-old female admitted after heroin overdose and provided by aerospace engineer with 2 mg of Narcan intranasally. Patient displaying racing thoughts and injurious behavior. Psychiatry has been consulted. Patient will be admitted to hospitalist service. Patient also endorses left leg weakness and numbness difficulty ambulating as well as signs of peritoneal anesthesia. Due to this patient will receive an MRI of the lumbar spine with and without contrast to rule out cauda equina. . PLAN: Heroin overdose: Patient displaying self-injurious behavior, stated she was referred to poison water supply by flushing the drugs down the toilet therefore she decided to snort them instead. Patient requires one-to-one sitter. Discussed with Dr. Vann from psychiatry. Consult placed. Patient is medically cleared for transfer to [facility]. Fortunately there were no beds available today. To discuss with psychiatry tomorrow morning. Elevated trop: initial trop 0.07, repeat 0.11, 0.10. In setting of chest compressions. EKG showing sinus tachycardia, no acute ischemic changes. Perform serial trops. No chest pain reported. Will obtain 2D echo to r/o pericardial effusion from possible cardiac contusion. Dr. Mayorga has reviewed the echocardiogram, states no abnormalities noted. Patient has no chest pain tachycardia has resolved. Rhabdomyolysis: CK has trended down to below 5000 decreasing with p.o. hydration. No muscle tenderness. Left leg numbness and weakness with signs of perineal anesthesia: Patient re ports numbness in the left labia majora as well as numbness of the leg extending down from the hip to the toes. Per ER staff she was seen ambulating with a limp. Initial exam showed 4/5 strength in the L lower extremity. On re- examination 5/5 strength was seen in all 4 extremities. Even though the patient displays 5 out of 5 strength in the bed we will proceed with MRI of the lumbar spine to make sure she does not have cauda equina or a spinal abscess. 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 Rectal exam shows normal voluntary anal tone, and preserved sensation of the perineum. Patient is not experiencing fecal incontinence or urinary retenti on. I attempted to transfer the patient to [facility] for spinal surgery eval, ([facility] had no available beds), and discussed the findings with Dr. Nazario. I endorsed the mentioned neurological findings. Dr. Nazario believed that no red-flag symptoms are present, and patient does not require urgent surgical intervention. We will perform serial neuro exams on the lower extremities and monitor for any worsening neuro symptoms. Reexamination on 11/12/2020, patient states that her numbness in the left leg has improved. Her left labial numbness has resolved. She has 5 out of 5 strength bilaterally. And continues to have full control of her urine and her bowels. No retention or incontinence of both. I discussed this once again with Dr. Head at [facility], Department of neurosurgery. He recommends no need for acute transfer for surgical intervention. Recommends referral to outpatient neurosurgery clinic. Patient's numbness of the left leg and left labia have resolved entirely. She has preserved 5 out of 5 strength. She was evaluated by physical therapy on 11/12/2020, showing no safety concerns in terms of physical ability. Left tongue numbness: Patient had a negative CT scan. She has equal and bilateral pupils without slurred speech or uvula deviation P duration. However given the fact that the patient is a drug user and had a recent fall we will make sure this patient did not have an acute CVA from possible embolic stroke. No acute findings were noted on MRI of the brain although there was motion artifact. Numbness resolved. Leukocytosis/SIRS: Patient was admitted with leukocytosis of 20.9. Suspect likely reactive. Meets SIRS criteria. Left shift of neutrophils 85.2%. Patient denies any subjective fever chills cough dysuria diarrhea. Blood culture sent from the ER. Will start on empiric vancomycin and cefepime until we have ruled out infection. We will stop IV antibiotics his white count has trended down patient has been afebrile blood cultures are thus far negative. Given questionable pneumonitis on CT angiogram we will continue with p.o. Augmentin and doxycycline Dispo: admission expect to last > 2 midnights. Patient is medically cleared to be transferred to [facility]. Unfortunately no beds available, will attempt to transfer on 11/15/2020. I updated the patient's mother, Pilar Luna ([phone]), and answered all questions in detail. I explained the need for [facility]. VS, I&O, 24H, Fishbone Vital Signs/I&O Vital Signs Date Time Temp Pulse Resp B/P (MAP) Pulse Ox O2 Delivery O2 Flow Rate FiO2 11/14/20 07:52 98.3 70 18 131/81 (98) 97 Room Air 11/12/20 04:00 2.0 I&O- Last 24 Hours up to 6 AM 11/14/20 06:00 Intake Total 2310 ml Output Total 2300 ml Balance 10 ml Laboratory Data 24H LABS Laboratory Tests 2 11/14/20 05:34: Immature Granulocyte % (Auto) 0.4, Neutrophils (%) (Auto) 63.1, Lymphocytes (%) (Auto) 22.9L, Monocytes (%) (Auto) 9.9H, Eosinophils (%) (Auto) 3.0, Basophils (%) (Auto) 0.7, Neutrophils # (Auto) 6.9, Lymphocytes # (Auto) 2.5, Monocytes # (Auto) 1.1H, Eosinophils # (Auto) 0.3, Basophils # (Auto) 0.1, Nucleated Red Blood Cells % (auto) 0.0, Anion Gap 5L, Glomerular Filtration Rate > 60.0, Calcium Level 8.4L, Magnesium Level 1.9, Total Bilirubin 0.8, Aspartate Amino Transf (AST/SGOT) 145H, Alanine Aminotransferase (ALT/SGPT) 95H, Alkaline Phosphatase 59, Total Creatine Kinase 3896H, Total Protein 5.7L, Albumin 2.9L, Albumin/Globulin Ratio 1.0L CBC/BMP Laboratory Tests 11/14/20 05:34 Microbiology Microbiology 11/11/20 Blood Culture - Preliminary, Resulted No Growth after 72 hours. All specime... 11/11/20 Blood Culture - Preliminary, Resulted No Growth after 72 hours. All specime... BLAISE GRAY MD Nov 14, 2020 12:33
[2020-11-14] MEDS: NICOTINE POLACRILEX 2 MG GUM PO PRN ×2 (13:26→17:13)
[2020-11-14] MEDS: LORazepam 1 MG TAB PO PRN (17:47)
[2020-11-14 20:00] VITALS: BP 130/73
[2020-11-14] MEDS: QUEtiapine FUMARATE 12.5 MG HALF-TAB PO SCH (21:06)
[2020-11-15 04:00] VITALS: BP 124/84
[2020-11-15 05:39] LABS: BASO # 0.1 10^3/uL (0.0-0.2); BASO % 0.7 % (0.0-1.0); EOS # 0.3 10^3/uL (0.0-0.5); HEMATOCRIT 43.5 % (36.0-47.0); HEMOGLOBIN 14.4 g/dl (12.0-15.5); LYMPH # 2.6 10^3/uL (1.5-5.0); LYMPH % 23.8 % (24.0-44.0); MEAN CORPUSCULAR HEMOGLOBIN 30.6 pg (27.0-33.0); MEAN CORPUSCULAR HGB CONC 33.1 g/dl (32.0-36.5); MEAN CORPUSCULAR VOLUME 92.6 fl (80.0-96.0); MONO # 1.1 10^3/uL (0.0-0.8); MONO % 10.3 % (2.0-8.0); NEUTROPHILS # 6.7 10^3/uL (1.5-8.5); NEUTROPHILS % 61.8 % (36.0-66.0); PLATELET COUNT, AUTOMATED 294 10^3/uL (150-450); WHITE BLOOD COUNT 10.9 10^3/uL (4.0-10.0)
[2020-11-15 06:47] LABS: ALBUMIN 3.2 GM/DL (3.2-5.2); ALT/SGPT 85 U/L (12-78); BILIRUBIN,TOTAL 0.6 MG/DL (0.2-1.0); BLOOD UREA NITROGEN 6 MG/DL (7-18); CALCIUM LEVEL 8.9 MG/DL (8.5-10.1); CARBON DIOXIDE LEVEL 28 MEQ/L (21-32); CHLORIDE LEVEL 107 MEQ/L (98-107); CREATININE FOR GFR 0.58 MG/DL (0.55-1.30); GLOMERULAR FILTRATION RATE > 60.0 (>60); GLUCOSE, FASTING 91 MG/DL (70-100); POTASSIUM SERUM 3.8 MEQ/L (3.5-5.1); SODIUM LEVEL 142 MEQ/L (136-145); TOTAL PROTEIN 6.3 GM/DL (6.4-8.2)
[2020-11-15 06:48] LABS: CPK CREATINE PHOSPHOKINASE 1901 U/L (26-192)
[2020-11-15 07:44] VITALS: BP 127/80
[2020-11-15] MEDS: MULTIVITAMINS/MINERALS THERAP 1 TAB PO SCH (10:11)
[2020-11-15] MEDS: ESCITALOPRAM OXALATE 5MG TABLET (LEXAPRO) PO SCH (10:11)
[2020-11-15] MEDS: NICOTINE POLACRILEX 2 MG GUM PO PRN ×2 (10:11→15:28)
--- NOTE | 2020-11-15 12:03 | IPNPDOC ---
Text Note Date of Service The patient was seen on 11/15/20. NOTE Subjective: No any acute events overnight, patient denied fever, chills, nausea, vomiting, legs numbness Objective: GENERAL APPEARANCE: NAD HEENT: no scleral icterus, no JVD, EOMI CARDIOVASCULAR: S1S2 LUNGS: CTA ABDOMEN: soft & not tender w palpation MUSCULOSKELETAL: no cyanosis, no swelling INTEGUMENT: no generalized pallor NEUROLOGICAL: cranial nerve function from 2-12 intact, follows commands, speech not dysarthric Assessment and plan 30-year-old female admitted after heroin overdose and provided by shingle carrier with 2 mg of Narcan intranasally. Patient displaying racing thoughts and injurious behavior. Patient was found to have rhabdomyolysis, heroin overdose and left leg numbness and weakness. Imaging showed bilateral foraminal stenosis at level L5-S1. Heroine overdose/suicidal ideation Await bed in [facility] Patient medically cleared to transfer Elevated troponin Most likely secondary to chest compressions Trended down Patient denied any chest pain Echo normal Rhabdomyolysis CPK trended down patient received IV fluid Left leg numbness and weakness Resolved MRI lumbar spine showing moderate to severe bilateral foraminal stenosis at L5- S1 level. Rectal exam shows normal voluntary anal tone, and preserved sensation of the perineum. Patient is not experiencing fecal incontinence or urinary retention. I attempted to transfer the patient to [facility] for spinal surgery evnv, ([facility] had no available beds), and discussed the findings with Dr. Nazario. I endorsed the mentioned neurological findings. Dr. Nazario believed that no red-flag symptoms are present, and patient does not require urgent surgical intervention. We will perform serial neuro exams on the lower extremities and monitor for any worsening neuro symptoms. Reexamination on 11/12/2020, patient states that her numbness in the left leg has improved. Her left labial numbness has resolved Follow-up with neurosurgeon in the outpatient settings No fecal or urine incontinence Left arm numbness Imaging study negative for stroke Numbness resolved Leukocytosis Most likely reactive Patient received empiric treatment with vancomycin and cefepime. Patient afebrile, normotensive. Patient does not have any cough or sputum production Improved Disposition Await transfer to [facility]. Patient will be transferred to [facility] VS,Emperatriz, I+O VS, Christiee, I+O Laboratory Tests 11/15/20 05:10 Vital Signs Date Time Temp Pulse Resp B/P (MAP) Pulse Ox O2 Delivery O2 Flow Rate FiO2 11/15/20 07:44 98.5 68 18 127/80 (96) 98 Room Air 11/12/20 04:00 2.0 I&O- Last 24 Hours up to 6 AM 11/15/20 06:00 Intake Total 360 ml Output Total 0 ml Balance 360 ml MATT SWAIN DO Nov 15, 2020 12:03
[2020-11-15] MEDS: LORazepam 1 MG TAB PO PRN (12:44)
[2020-11-15] MEDS ORDERED: LORazepam 1 MG TAB PO PRN (12:50)
--- NOTE | 2020-11-15 19:21 | DS.PDOC ---
Discharge Summary General Date of Admission Nov 11, 2020 at 11:02 Date of Discharge 11/15/20 Discharge Summary PROCEDURES PERFORMED DURING STAY: [None]. ADMITTING DIAGNOSES: Heroin overdose Elevated troponin Rhabdomyolysis Left leg numbness and weakness Left tongue numbness Leukocytosis/SIRS DISCHARGE DIAGNOSES: Heroin overdose Elevated troponin Rhabdomyolysis Left leg numbness and weakness Left tongue numbness Leukocytosis/SIRS COMPLICATIONS/CHIEF COMPLAINT: Heroin Overdose, Leukocytosis, Rhabdomyolysis. HISTORY OF PRESENT ILLNESS: 30-year-old female admitted after heroin overdose and provided by confectionery laboratory manager with 2 mg of Narcan intranasally. Patient displaying racing thoughts and injurious behavior. Psychiatry has been consulted. Patient will be admitted to hospitalist service. Patient also endorses left leg weakness and numbness difficulty ambulating as well as signs of peritoneal an esthesia. Due to this patient will receive an MRI of the lumbar spine with and without contrast to rule out cauda equina. HOSPITAL COURSE: During the hospital stay the following issue addressed Heroin overdose: Patient displaying self-injurious behavior, stated she was refe rred to poison water supply by flushing the drugs down the toilet therefore she decided to snort them instead. Patient requires one-to-one sitter. Discussed with Dr. Vann from psychiatry. Consult placed. Patient is medically cleared for transfer to [facility]. Elevated trop: initial trop 0.07, repeat 0.11, 0.10. In setting of chest compressions. EKG showing sinus tachycardia, no acute ischemic changes. Perform serial trops. No chest pain reported. Will obtain 2D echo to r/o pericardial effusion from possible cardiac contusion. Dr. Mayorga has reviewed the echocardiogram, states no abnormalities noted. Patient has no chest pain tachycardia has resolved. Rhabdomyolysis: CK has trended down to below 5000 decreasing with p.o. hydration. No muscle tenderness. Left leg numbness and weakness with signs of perineal anesthesia: Patient reports numbness in the left labia majora as well as numbness of the leg extending down from the hip to the toes. Per ER staff she was seen ambulating with a limp. Initial exam showed 4/5 strength in the L lower extremity. On re- examination 5/5 strength was seen in all 4 extremities.. 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 Rectal exam shows normal voluntary anal tone, and preserved sensation of the perineum. Patient is not experiencing fecal incontinence or urinary retention. I attempted to transfer the patient to [facility] for spinal surgery eval, ([facility] had no available beds), and discussed the findings with Dr. Nazario. I endorsed the mentioned neurological findings. Dr. Nazario believed that no red-flag symptoms are present, and patient does not require urgent cain rgical intervention. We will perform serial neuro exams on the lower extremities and monitor for any worsening neuro symptoms. Reexamination on 11/12/2020, patient states that her numbness in the left leg has improved. Her left labial numbness has resolved. She has 5 out of 5 strength bilaterally. And continues to have full control of her urine and her bowels. No retention or incontinence of both. I discussed this once again with Dr. Head at [facility], Department of neurosurgery. He recommends no need for acute transfer for surgical intervention. Recommends referral to outpatient neurosurgery clinic. Patient's numbness of the left leg and left labia have resolved entirely. She has preserved 5 out of 5 strength. She was evaluated by physical therapy on 11/12/2020, showing no safety concerns in terms of physical ability. Left tongue numbness: Patient had a negative CT scan. She has equal and bilateral pupils without slurred speech or uvula deviation P duration. However given the fact that the patient is a drug user and had a recent fall we will make sure this patient did not have an acute CVA from possible embolic stroke. No acute findings were noted on MRI of the brain although there was motion artifact. Numbness resolved. Leukocytosis/SIRS: Patient was admitted with leukocytosis of 20.9. Suspect likely reactive. Meets SIRS criteria. Left shift of neutrophils 85.2%. Patient denies any subjective fever chills cough dysuria diarrhea. Blood culture sent from the ER. Will start on empiric vancomycin and cefepime until we have ruled out infection. We will stop IV antibiotics his white count has trended down patient has been afebrile blood cultures are thus far negative. Given questionable pneumonitis on CT angiogram we will continue with p.o. Augmentin and doxycycline DISCHARGE MEDICATIONS: Please see below. ALLERGIES: Please see below. PHYSICAL EXAMINATION ON DISCHARGE: . VITAL SIGNS: please see below General: NAD, comfortable HEENT: PERRLA, EOMI, sclerae clear Neck: supple, normal ROM, no JVD Respiratory: lungs CTAB, no wheeze, no rales, no crackles CVS: RRR, normal S1, S2, no murmurs Abdo: soft, no masses, no hepatosplenomegaly, BS+, no rebound tenderness Extremities: no edema, pulses 2+ MSK: no joint deformities, normal ROM Neuro: no focal neuro deficits, moving all 4 extremities, CN2-12 intact[address] Str ength 5/5 in all 4 extremities. Intact sensation of both lower extremity to both final coarse touch. Has no limitation in range of motion. Psych: calm, cooperative, AAO x 3 LABORATORY DATA: Please see below. IMAGING: CT angio chest on 11/14/20: 1. No pulmonary artery embolism identified. 2. Central patchy airspace opacities left upper lobe and lingula. Pneumonitis is difficult to exclude. Clinical correlation is recommended. RLE venous duplex (11/14/20): No evidence of deep venous thrombosis of the right lower extremity. Echo from 11/12/20: 1. This study is of fair but adequate technical quality, underlying sinus rhythm with ventricular rate around 100 beats per minute. 2. Normal LV size, systolic and diastolic function. 3. No significant valvular disease. 4. Likely elevated central venous pressure. 5. Unable to estimate pulmonary artery pressure, but no signs to suggest pulmonary hypertension. PROGNOSIS: Fair ACTIVITY: [As tolerated]. DIET: Regular DISPOSITION: [facility] DISCHARGE CONDITION: [Stable]. TIME SPENT ON DISCHARGE:40minutes. Vital Signs/I&Os Vital Signs Date Time Temp Pulse Resp B/P (MAP) Pulse Ox O2 Delivery O2 Flow Rate FiO2 11/15/20 07:44 98.5 68 18 127/80 (96) 98 Room Air 11/12/20 04:00 2.0 I&O- Last 24 Hours up to 6 AM 11/15/20 06:00 Intake Total 360 ml Output Total 0 ml Balance 360 ml Laboratory Data Labs 24H Laboratory Tests 2 11/15/20 05:10: Immature Granulocyte % (Auto) 0.4, Neutrophils (%) (Auto) 61.8, Lymphocytes (%) (Auto) 23.8L, Monocytes (%) (Auto) 10.3H, Eosinophils (%) (Auto) 3.0, Basophils (%) (Auto) 0.7, Neutrophils # (Auto) 6.7, Lymphocytes # (Auto) 2.6, Monocytes # (Auto) 1.1H, Eosinophils # (Auto) 0.3, Basophils # (Auto) 0.1, Nucleated Red Blood Cells % (auto) 0.0, Anion Gap 7L, Glomerular Filtration Rate > 60.0, Calcium Level 8.9, Magnesium Level 2.0, Total Bilirubin 0.6, Aspartate Amino Transf (AST/SGOT) 93H, Alanine Aminotransferase (ALT/SGPT) 85H, Alkaline Phosphatase 61, Total Creatine Kinase 1901H, Total Protein 6.3L, Albumin 3.2, Albumin/Globulin Ratio 1.0L CBC/BMP Laboratory Tests 11/15/20 05:10 Microbiology Microbiology 11/11/20 Blood Culture - Preliminary, Resulted No Growth after 72 hours. All specime... 11/11/20 Blood Culture - Preliminary, Resulted No Growth after 72 hours. All specime... Discharge Medications Scheduled Escitalopram Oxalate (Lexapro) 10 Mg Tablet, 15 MG PO DAILY, (Reported) Multivitamins (Thera M Plus Tablet) 1 Each Tablet, 1 TAB PO DAILY, (Reported) Zinc (Zinc) 50 Mg Tablet, 50 MG PO DAILY, (Reported) Allergies Coded Allergies: Penicillins (Verified Allergy, Unknown, UNKNOWN REACTION, 11/11/20) MATT SWAIN DO Nov 15, 2020 19:21
[2020-11-15] MEDS: QUEtiapine FUMARATE 12.5 MG HALF-TAB PO SCH (21:31)
[2020-11-15] MEDS: RAMELTEON 8 MG TAB (ROZEREM) PO PRN (21:31)
[2020-11-17] MEDS ORDERED: NICO2GUM PO (15:10)
[2020-11-17] MEDS ORDERED: BUPR-69 PO (15:10)
== END 2020-11-16 00:32 | DRG 271 ==
LOC: M ED 08:09 → EDBD 08:09 → M ED INP 11:02 → ENRESERV 11:37 → M PCU 13:16
PROVIDERS: ADMIT Family Medicine; ATTEND Internal Medicine
DX: T40.1X1A Poisoning by heroin, accidental (unintentional), initial encounter (principal); M62.82 Rhabdomyolysis; R20.0 Anesthesia of skin; Z20.822 Contact with and (suspected) exposure to COVID-19; Z79.899 Other long term (current) drug therapy; Z88.0 Allergy status to penicillin; F32.9 Major depressive disorder, single episode, unspecified; F12.10 Cannabis abuse, uncomplicated; D72.829 Elevated white blood cell count, unspecified

== ENCOUNTER 2020-11-15 19:27 | Inpatient (IN) | payer OTHER ==
[~2020-11-15 19:27] MED LIST: LEXA1TAB PO; VITMTA PO; ZINC1TAB2 PO
[2020-11-15] MEDS ORDERED: MAALOX 30 ML SUSP *UDC PO PRN (23:50)
[2020-11-15] MEDS ORDERED: MOM 30ML SUSPENSION UDC PO PRN (23:50)
[2020-11-15] MEDS ORDERED: ACETAMINOPHEN TAB 650MG DOSE (2X325MG) PO PRN (23:50)
[2020-11-16] MEDS: OLANZapine ORAL DISINTEGRATING TAB 5MG PO PRN ×3 (00:54→23:56)
[2020-11-16] MEDS: traZODone 50 MG TAB PO PRN ×2 (00:54→21:41)
[2020-11-16 02:04] VITALS: BP 120/82
[2020-11-16] MEDS ORDERED: HOME MED LIST COMPLETE! XX SCH (11:55)
[2020-11-16] MEDS: hydrOXYzine 50 MG TAB PO PRN (12:28)
--- NOTE | 2020-11-16 14:13 | MHHPEPDOC ---
General Date Of Admission: Nov 16, 2020 Legal Status: 9.39 Chief Complaint Patient took an overdose of Heroin . History of Present Illness HISTORY OF THE PRESENT ILLNESS: Patient is a 30 -year-old single, unemployed, domiciled , female, who took an overdose of her sister's heroin. Patient was brought to the emergency room where she received CPR and had to be revived upon her arrival, she was admitted to ICU and from there was downgraded to PCU patient was directly admitted to psychiatry after she was medically stabilized on a medical-surgical floor. She states, "I made a stupid mistake and bad choice and had taken heroin out of my sister's room. I took it to see the appeal, which was a terrible idea." She reports that she does not have prior drug history and that she was not suicidal. Patient denies that this was a suicide attempt and according to insulting psychiatrist patient stated that the reason for her overdose was because she wanted know how her sister felt when using drugs. She reports that her sister is a drug user and has been using it extensively. Psychiatric Review of Systems Depression (2 or more weeks): denies Danyelle (4 or more days of): irritable/elevated mood, distractibility, engages in risky behavior Psychosis: denies PTSD: history of trauma Anxiety: gen/non-specific anxiety, situational anxiety, panic attacks (history) Anxiety/ 6 months or more of: muscle tension Past Psychiatric History Previous Psychiatric Diagnosis: History of Depression, ADHD Previous Psychiatric Admissions: This is the first admission Suicide Attempts: S/P Heroin Overdose Psychiatric Follow-up: History of services at [facility] Dr. Elias Psychiatric medications: Lexapro, Adderall Past Medical History Medical Problems Chronic Pain (Hips, lower back, shoulders, weak knees and ankles) Head Injury: Yes (Cheerleading njury - concussion) Seizures: Yes (had a seizure when she was in shower in Fall 2013, ) Hospitalizations: Yes (childbirth and current) Surgeries: Yes Family Medical/Psychiatric HX Medical Problems Biological Father - chronic pain Mother - HTN, Anxiety Sister - Bipolar, Substance Use Disorder (Olanzapine) Psychiatric Disorders: Yes Addiction: Yes Suicide Attemps/Completions: No Addiction History nicotine (smoking 1/2 pack per day), opioids (states this overdose was her first attempt), other (Cannabis) Social History Childhood: Born in [place], grew up in [facility]. She is the oldest of 3 children (2 girls and 1 boy) Describes her childhood as "loving" Did well in school. Abuse/Trauma: PTSD history Current Living Situation: Currently lives with parents. Education: Graduated high school and some college. 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 Social Support: Parents supportive Legal: Denies Marital: , 1 child (8 years old) Mental Status Examination General Appearance: unkempt, disheveled, appears stated age, hospital scubs/clothing Demeanor: hostile (mildly), mistrustful, guarded, other (irritable and superficial) Activity: agitated, hostile Behavior: uncooperative, agitated Speech: clear Mood: irritable Affect: constricted Thought Process: logical/linear Thought Content (Aggressive): none reported Perception (Hallucinations): none reported Perception (Other): none reported Cognition (Impairment of): none reported Cognition(Intelligence Est.): average Oriented: Awake, Alert, Oriented times three Insight: poor Judgment: Poor Psychosis: Denies Diagnoses Unspecified mood disorder Rule out bipolar 2 disorder Opioid use disorder cannabis use disorder Nicotine use disorder Unspecified anxiety disorder ADHD History of PTSD A-FIB/CHADSVASC A-FIB History Current/History of A-Fib/PAF?: No Current PO Anticoag Therapy: No Assessment Patient is a 30-year-old single, unemployed, domiciled, female who was brought to [facility] after taking an overdose of her sister's heroin which she reports was her first use of it patient was initially admitted to ICU and then downgraded to PCU. She is admitted to psychiatry for her overdose which she reports was not a suicidal attempt. Patient presents in the interview is possibly being hypomanic, she was quite labile in her interview. Smiling and 1 minute and then crying in the next minute. Patient reports that she takes Lexapro but is willing to trial Wellbutrin because she is trying to quit smoking. I discussed with her bipolar symptoms that she is exhibiting she denies that she has any bipolar symptoms but she admits that her sister is diagnosed with bipolar. 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 " Patient was mildly grandiose in her interview, appeared to have racing thoughts, and was very labile. Patient agreed to take Wellbutrin 50 mg daily stating she wants to quit smoking. She will be afforded the following individual therapy, group therapy, social and milieu therapy. Patient to be discharged when she is stable Per staff, patient is requesting Lexapro, Wellbutrin, Ativan and Adderall. Initial Treatment Plan 1. Patient was admitted on a [9.39] status. 2. Complete history was obtained. 3. With patients permission, family will be contacted and database will be expanded. 4. Patients medication regimen will be reviewed and changed accordingly. 5. Patient will be provided with protected environment. 6. Patient will be treated with individual, group, and milieu therapies. 7. Patient will receive supportive psych-education. 8. Discharge planning will commence immediately. 9. Outpatient follow-up treatment will be strongly recommended. 10. The initial treatment plan will focus initially on: * Depression. * Risk for suicide. ESTIMATED LENGTH OF STAY: 3-5 DAYS. TIME SPENT COUNSELING AND COORDINATING INITIAL CARE: 60 minutes. Tobacco Cessation Screen Tobacco Cessation Tx Ordered?: Yes N/A-No Antipsychotics Vital Signs Vital Signs Date Time Temp Pulse Resp B/P (MAP) Pulse Ox O2 Delivery O2 Flow Rate FiO2 11/16/20 02:04 98.7 97 20 120/82 (95) 96 Room Air Medications Scheduled Escitalopram Oxalate (Lexapro) 10 Mg Tablet, 15 MG PO DAILY, (Reported) Multivitamins (Thera M Plus Tablet) 1 Each Tablet, 1 TAB PO DAILY, (Reported) Zinc (Zinc) 50 Mg Tablet, 50 MG PO DAILY, (Reported) Allergies Coded Allergies: Penicillins (Verified Allergy, Unknown, UNKNOWN REACTION, 11/11/20) ROCKY DRWE FELT COVERER Nov 16, 2020 11:41
[2020-11-16] MEDS: buPROPion 100 MG TAB PO SCH (14:42)
[2020-11-16] MEDS: PILL CUTTER 1 EACH XX PRN (14:43)
--- NOTE | 2020-11-16 16:42 | HPEPDOC ---
General Date of Admission Nov 16, 2020 at 00:41 Date of Service: Nov 16, 2020 Chief Complaint The patient is a 30-year-old female admitted with a reason for visit of Unspecified Depressive Disorder. Source: Patient History of Present Illness Patient is 30 years old female with past medical history of heroin abuse, depression was transferred to mental health unit after she received treatment on the general floor. Initially patient was admitted to [facility] with heroin overdose and suicidal ideation. Patient received treatment and then she was stabilized she was transferred to mental health unit for continuation of therapy. Patient denied fever, chills, nausea, vomiting, diarrhea or dysuria Home Medications Scheduled Escitalopram Oxalate (Lexapro) 10 Mg Tablet, 15 MG PO DAILY, (Reported) Multivitamins (Thera M Plus Tablet) 1 Each Tablet, 1 TAB PO DAILY, (Reported) Zinc (Zinc) 50 Mg Tablet, 50 MG PO DAILY, (Reported) Allergies Coded Allergies: Penicillins (Verified Allergy, Unknown, UNKNOWN REACTION, 11/11/20) Past Medical History Medical History Polysubstance abuse, PTSD, spinal stenosis, depression, ADHD Social History * Smoker: current smoker Alcohol: Denies Drugs: heroin, marijuana A-FIB/CHADSVASC A-FIB History Current/History of A-Fib/PAF?: No Current PO Anticoag Therapy: No Review of Systems Constitutional: Denies: Chills Eyes: Denies: Pain ENT: Denies: Head Aches Skin: Denies: Rash Pulmonary: Denies: Dyspnea, Cough Cardiovascular: Denies: Chest Pain Gastrointestinal: Denies: Nausea Genitourinary: Denies: Dysuria Hematologic: Denies: Bruising Endocrine: Denies: Polydipsia Musculoskeletal: Denies: Neck Pain Neurological: Denies: Weakness Psych: Reports: Depression Physical Examination General Exam: Positive: Alert, Cooperative Eye Exam: Positive: PERRLA ENT Exam: Positive: Atraumatic Neck Exam: Positive: Supple; Negative: JVD Chest Exam: Positive: Clear to auscultation Heart Exam: Positive: Rate Normal Telemetry: Negative: No significant arrhythmia Abdomen Exam: Positive: Normal bowel sounds Extremity Exam: Negative: Clubbing Skin Exam: Positive: Nl turgor and temperature Neuro Exam: Positive: Strength at 5/5 X4 ext Psych Exam: Positive: Oriented x 3 Vital Signs Vital Signs Date Time Temp Pulse Resp B/P (MAP) Pulse Ox O2 Delivery O2 Flow Rate FiO2 11/16/20 02:04 98.7 97 20 120/82 (95) 96 Room Air Assessment/Plan Patient is 30 years old female with past medical history of heroin abuse, depression was transferred to mental health unit after she received treatment on the general floor. Initially patient was admitted to [facility] with heroin overdose and suicidal ideation. Patient received treatment and then she was stabilized she was transferred to mental health unit for continuation of therapy. Patient denied fever, chills, nausea, vomiting, diarrhea or dysuria Problems (1) Depression Status: Acute Problem Text: Defer treatment to psych team Plan / VTE VTE Prophylaxis Ordered?: No VTE Exclusion Mechanical Proph: Low Risk for VTE MATT SWAIN DO Nov 16, 2020 16:42
[2020-11-16] MEDS: NICOTINE POLACRILEX 2 MG GUM PO PRN (19:23)
[2020-11-16] MEDS: OLANZapine 5 MG TAB PO SCH (20:52)
[2020-11-17 06:07] VITALS: BP 122/65
[2020-11-17] MEDS: PILL CUTTER 1 EACH XX PRN (09:37)
[2020-11-17] MEDS: OLANZapine 5 MG TAB PO SCH ×2 (09:37→21:23)
[2020-11-17] MEDS: buPROPion 100 MG TAB PO SCH (09:37)
[2020-11-17] MEDS: NICOTINE POLACRILEX 2 MG GUM PO PRN ×2 (11:55→19:06)
--- NOTE | 2020-11-17 13:33 | MHIPNPDOC ---
[facility] Progress Note Progress Note DATE OF SERVICE: 11/17/20 HISTORY: Patient is a 30 -year-old single, unemployed, domiciled , female, who took an overdose of her sister's heroin. Patient was brought to the emergency room where she received CPR and had to be revived upon her arrival, she was admitted to ICU and from there was downgraded to PCU patient was directly admitted to psychiatry after she was medically stabilized on a medical- surgical floor. She states, "I made a stupid mistake and bad choice and had taken heroin out of my sister's room. I took it to see the appeal, which was a terrible idea." She reports that she does not have prior drug history and that she was not suicidal. Patient denies that this was a suicide attempt and according to insulting psychiatrist patient stated that the reason for her overdose was because she wanted know how her sister felt when using drugs. She reports that her sister is a drug user and has been using it extensively. VITAL SIGNS: See below. CURRENT MEDICATIONS: See below. MENTAL STATUS EXAMINATION: Patient is a 30 -year-old single, unemployed, domiciled , female, who took an overdose of her sister's heroin. Patient was brought to the emergency room where she received CPR for OD. Mental Status Examination General Appearance: mildly disheveled, appears stated age, hospital scrubs/clothing Demeanor: animated, mildly dramatic and superficial Activity: cooperative Behavior: pleasant Speech: clear Mood: euthymic Affect: superficial and animated Thought Process: logical/linear Thought Content (Aggressive): none reported Perception (Hallucinations): none reported Perception (Other): none reported Cognition (Impairment of): none reported Cognition(Intelligence Est.): average Oriented: Awake, Alert, Oriented times three Insight: fair Judgment: fair Psychosis: Denies DIAGNOSES: 1. Unspecified mood disorder 2. Rule out bipolar 2 disorder 3.Opioid use disorder 4. cannabis use disorder 5. Nicotine use disorder 6. Unspecified anxiety disorder 7. ADHD 8. History of PTSD ASSESSMENT: Patient found in day room with peers, compliant to interview. When speaking patient is very passional and dramatic. She is repetitive in repeating her reason for admission. It appears that she had rehearsed it numerous times st ating, "I made a stupid mistake and bad choice and had taken heroin out of my sister's room." Patient displayed grandiosity in her explanation on how her sister was using heroin, explaining to her parents that her sister wasn't niko mary due to her daily medications but her heroin use. In the interview the patient was dramatic and theatrical in her affect at times. Patient expressed how her sisters substance abuse is destroying her family but made a contradictory statement about her overdose. Patient down plays how dangerous her decision was. She denies any SI/HI, has not exhibited any psychotic symptoms. Patient seemed very superficial and animated during interview but does not display any dangerous behaviors to herself or others. Discharge team feels she meets criteria for discharge tomorrow. MANAGEMENT PLAN: Continually all medications and supportive therapies, discharge tomorrow TIME SPENT: 25 minutes. Vital Signs Vital Signs Date Time Temp Pulse Resp B/P (MAP) Pulse Ox O2 Delivery O2 Flow Rate FiO2 11/17/20 06:07 98.3 52 16 122/65 (84) 100 Room Air Current Medications Current Medications Medications (Trade) Dose Ordered Sig/Juanjo Route PRN Reason Start Time Stop Time Status Last Admin Dose Admin Acetaminophen (Tylenol Tab) 650 mg Q6HP PRN PO HEADACHE or MILD DISCOMFORT 11/15/20 23:50 11/16/20 02:13 Al Hydrox/Mg Hydrox/Simethicone (Mylanta) 30 ml Q4HP PRN PO HEARTBURN/INDIGESTION 11/15/20 23:50 Bupropion HCl (Wellbutrin) 50 mg DAILY PO 11/16/20 09:00 11/17/20 09:37 Home Med (Home Med List Complete!) ASDIRECTED XX 11/16/20 11:55 11/16/20 12:00 DC Hydroxyzine HCl (Atarax) 50 mg Q6HP PRN PO ANXIETY 11/16/20 11:40 11/16/20 12:28 Magnesium Hydroxide (Milk Of Magnesia) 30 ml DAILYPRN PRN PO CONSTIPATION 11/15/20 23:50 Nicotine (Nicorette) 2 mg Q4HP PRN PO NICOTINE WITHDRAWAL 11/16/20 12:55 11/17/20 11:55 Olanzapine (ZyPREXA ZYDIS) 5 mg Q6HP PRN PO AGITATION 11/15/20 23:50 11/16/20 23:56 Olanzapine (ZyPREXA) 5 mg BID PO 11/16/20 21:00 11/17/20 09:37 Trazodone HCl (Desyrel) 50 mg QHSP PRN PO INSOMNIA 11/15/20 23:50 11/16/20 21:41 Allergies Coded Allergies: Penicillins (Verified Allergy, Unknown, UNKNOWN REACTION, 11/11/20) ROCKY DREW NP Nov 17, 2020 13:33
[2020-11-17] MEDS ORDERED: NICO2GUM PO (15:10)
[2020-11-17] MEDS ORDERED: BUPR-69 PO (15:10)
[2020-11-17] MEDS: OLANZapine ORAL DISINTEGRATING TAB 5MG PO PRN (15:53)
[2020-11-17 17:48] VITALS: BP 132/76
[2020-11-17] MEDS: traZODone 50 MG TAB PO PRN (21:23)
[2020-11-18] MEDS: hydrOXYzine 50 MG TAB PO PRN (00:05)
[2020-11-18] MEDS: OLANZapine ORAL DISINTEGRATING TAB 5MG PO PRN (01:06)
[2020-11-18 06:46] VITALS: BP 109/55
[2020-11-18] MEDS: buPROPion 100 MG TAB PO SCH (10:12)
[2020-11-18] MEDS: OLANZapine 5 MG TAB PO SCH (10:12)
[2020-11-18] MEDS: PILL CUTTER 1 EACH XX PRN (10:12)
--- NOTE | 2020-11-18 10:22 | MHDSPDOC ---
[facility] Discharge Summary Discharge Summary DATE OF ADMISSION: Nov 16, 2020 at 00:41 DATE OF DISCHARGE: November 18, 2020 at 1012 DISCHARGE DIAGNOSES: 1. Unspecified mood disorder 2. Rule out bipolar 2 disorder 3.Opioid use disorder 4. cannabis use disorder 5. Nicotine use disorder 6. Unspecified anxiety disorder 7. ADHD 8. History of PTSD REASON FOR ADMISSION: Patient is a 30 -year-old single, unemployed, domiciled , female, who took an overdose of her sister's heroin. Patient was brought to the emergency room where she received CPR and had to be revived upon her arrival, she was admitted to ICU and from there was downgraded to PCU patient was directly admitted to psychiatry after she was medically stabilized on a medical-surgical floor. She states, "I made a stupid mistake and bad choice and had taken heroin out of my sister's room. I took it to see the appeal, which was a terrible idea." She reports that she does not have prior drug history and that she was not suicidal. Patient denies that this was a suicide attempt and according to insulting psychiatrist patient stated that the reason for her overdose was because she wanted know how her sister felt when using drugs. She reports that her sister is a drug user and has been using it extensively. CONSULTANTS INVOLVED: See Medical H + P by Hospitalist TREATMENT AND PROGRESS ON THE UNIT: Patient was admitted to the [facility] on a 9.39 legal status was afforded the following treatment modalities: 1) Individual Therapy 2) Group Therapy 3) Medication Management 4) Milieu Therapy 5) Safe Environment HOSPITAL COURSE: Patient was admitted to [facility] on a 9.39 legal status. She was started on Wellbutrin reporting that she wants to quit smoking. She states that she had been taking Lexapro in the past when she was seeing Dr. Elias at [facility]. Earlier in the admission, patient reports that she wants both Wellbutrin and Lexapro, Adderall and Ativan. Provider discussed with patient that Wellbutrin is appropriate, two anti-depressants will not be ordered. Patient may or may not have an Opioid history, as she reports that this overdose was the "first use" of the drug. Advised patient to seek outpatient services with Adderall and anxiolytic as she did not present with moderate or severe anxiety while on the unit. She did not complain of distraction or poor focus and thus the Adderall which had not been verified was not included in her medication reconciliation. Patient was social with peers, cooperative in the milieu and attended groups. She reported no suicidal cullen ations, intent or planning. DISCHARGE ASSESSMENT: In today's interview, patient is alert and oriented, pt.s dress is appropriate. Hygiene and grooming is well-kempt. Smiles on approach and is pleasant and engaged in the interview. Denies depression and anxiety. Denies suicidal and homicidal ideation, planning or intent. Denies and is not observed with anika, psychotic symptoms of delusions, bizarre thinking, obsessions, paranoia, ruminations illogical thoughts, flight of ideas or having poor insight and judgement. Reinforced with patient need to abstain from alcohol and drugs. At discharge patient has normal mentation, declines further hospitalization on a voluntary status and meets criteria for discharge today. MENTAL STATUS EXAMINATION ON DISCHARGE: Patient is a 30 -year-old single, unemployed, domiciled , female, who took an overdose of her sister's heroin. Patient was brought to the emergency room where she received CPR for OD. Demeanor: average Activity: pleasant and cooperative Behavior: cooperative Speech: clear, reg/rate,rhythm,volume Mood: reports no depression I am feeling good Affect: animated Thought Process: logical/linear Thought Content (Delusions): none reported Thought Content (Other): none reported Thought Content (Aggressive): none reported Perception (Hallucinations): none reported Perception (Other): none reported Cognition (Impairment of): none reported Cognition(Intelligence Est.): average Oriented: Awake, Alert, Oriented times three Insight: fair Judgment: Fair Psychosis: Denies Suicide Risk Assessment: 1) Does the patient wish to be ? No 2) Since your admission, have you had any actual thought of killing yourself? No 3) Since your admission, have you been thinking about how you might do this? No 4) Since your admission, have you had these thoughts and had some intention of acting on them? No 5) Since your admission, have you started to work out or worked out the details of how to kill yourself? No 5A) Do you intent to carry out this plan? No and NA 6) Have you ever done anything, started anything, or prepared to do anything with any intent to ? No 6A) How long since your admission did you do any of these? NA MEDICATIONS ON DISCHARGE: See Medication Reconciliation PLAN/FOLLOWUP ARRANGEMENTS: Patient is returning home, she lives with her parents. [facility]. The amount of time spent in the coordination of care for this patient was approximately 24 minutes. ETOH/Disorder Med Rx ETOH/DRUG DISORDER RX: Offrd @ d/c & pt refused Vital Signs/I&Os Vital Signs Date Time Temp Pulse Resp B/P (MAP) Pulse Ox O2 Delivery O2 Flow Rate FiO2 11/18/20 06:46 97.5 58 16 109/55 (73) 98 Room Air Medications Scheduled Bupropion HCl (Bupropion HCl) 100 Mg Tablet, 50 MG PO DAILY for Anxiety, #4 Take 1/2 tablet daily Multivitamins (Thera M Plus Tablet) 1 Each Tablet, 1 TAB PO DAILY, (Reported) Zinc (Zinc) 50 Mg Tablet, 50 MG PO DAILY, (Reported) Scheduled PRN Nicotine Polacrilex (Nicotine Gum) 2 Mg Gum, 2 MG PO Q4HP PRN for NICOTINE WITHDRAWAL, #1 Allergies Coded Allergies: Penicillins (Verified Allergy, Unknown, UNKNOWN REACTION, 11/11/20) ROCKY DREW NP Nov 18, 2020 10:22
[2020-11-18] MEDS: NICOTINE POLACRILEX 2 MG GUM PO PRN (11:29)
== END 2020-11-18 12:11 | disposition home or self-care (01) | DRG 885 ==
LOC: M PSY 11-16 00:41
PROVIDERS: ADMIT Psychiatry & Neurology Child & Adolescent Psychiatry; ATTEND Psychiatry & Neurology Psychiatry
DX: F39 Unspecified mood [affective] disorder (principal); F11.10 Opioid abuse, uncomplicated; F12.10 Cannabis abuse, uncomplicated; F17.200 Nicotine dependence, unspecified, uncomplicated; F41.9 Anxiety disorder, unspecified; F90.9 Attention-deficit hyperactivity disorder, unspecified type; F43.10 Post-traumatic stress disorder, unspecified; Z79.899 Other long term (current) drug therapy; Z88.0 Allergy status to penicillin; Z91.5 Personal history of self-harm

== ENCOUNTER → 2023-05-07 | Outpatient (REF) | payer OTHER ==
[~2023-05-07] MED LIST changes: +BUPR-69 PO; +NICO2GUM PO
[2023-05-07 13:26] LABS: BASO % 0.3 % (0.0-1.0); EOS # 0.1 10^3/uL (0.0-0.5); HEMATOCRIT 43.2 % (36.0-47.0); HEMOGLOBIN 14.3 g/dl (12.0-15.5); LYMPH # 2.3 10^3/uL (1.5-5.0); MEAN CORPUSCULAR HEMOGLOBIN 30.6 pg (27.0-33.0); MEAN CORPUSCULAR HGB CONC 33.1 g/dl (32.0-36.5); MEAN CORPUSCULAR VOLUME 92.5 fl (80.0-96.0); MONO # 0.8 10^3/uL (0.0-0.8); MONO % 7.2 % (2.0-8.0); NEUTROPHILS # 7.3 10^3/uL (1.5-8.5); PLATELET COUNT, AUTOMATED 317 10^3/uL (150-450); RED BLOOD COUNT 4.67 10^6/uL (4.00-5.40); WHITE BLOOD COUNT 10.6 10^3/uL (4.0-10.0)
[2023-05-07 13:32] LABS: HEMOGLOBIN A1c 5.1 % (4.0-6.0)
[2023-05-07 14:01] LABS: TOTAL 25(OH) VITAMIN D 23.4 NG/ML (20.0-100.0)
[2023-05-07 14:02] LABS: THYROID STIMULATING HORMONE 1.167 uIU/ML (0.55-4.78)
[2023-05-07 14:03] LABS: ALBUMIN 3.8 G/DL (3.2-5.2); ALKALINE PHOSPHATASE 53 U/L (46-116); ALT/SGPT 28 U/L (7.0-40); AST/SGOT 19 U/L (<34); BILIRUBIN,TOTAL 0.6 MG/DL (0.3-1.2); BLOOD UREA NITROGEN 13 MG/DL (9-23); CALCIUM LEVEL 9.2 MG/DL (8.5-10.1); CARBON DIOXIDE LEVEL 26 MMOL/L (20-31); CHLORIDE LEVEL 108 MMOL/L (98-107); CREATININE FOR GFR 0.62 MG/DL (0.55-1.30); GLOMERULAR FILTRATION RATE > 60.0 (>60); GLUCOSE, FASTING 94 MG/DL (60-100); MAGNESIUM LEVEL 1.8 MG/DL (1.8-2.4); SODIUM LEVEL 139 MMOL/L (136-145); TOTAL PROTEIN 6.6 G/DL (5.7-8.2)
[2023-05-07 14:26] LABS: HIV 1&2 SCREEN NEGATIVE (NEGATIVE)
[2023-05-07 14:33] LABS: HEPATITIS C VIRUS ABY INDEX < 0.02 INDEX (<0.8)
== END ==
LOC: M LAB REF 12:05
PROVIDERS: ATTEND Physician Assistant
DX: M25.561 Pain in right knee (principal); M25.562 Pain in left knee; Z11.9 Encounter for screening for infectious and parasitic diseases, unspecified; E55.9 Vitamin D deficiency, unspecified; R53.83 Other fatigue

== ENCOUNTER → 2023-07-06 | Outpatient (CLI) | payer OTHER | LOC: M RAD 13:48 | PROVIDERS: ATTEND Physician Assistant | DX: R07.9 Chest pain, unspecified (principal); R05.9 Cough, unspecified ==

== ENCOUNTER → 2023-07-09 | Outpatient (CLI) | payer OTHER ==
[2023-07-09 16:46] LABS: BASO # 0.1 10^3/uL (0.0-0.2); BASO % 0.7 % (0.0-1.0); EOS # 0.3 10^3/uL (0.0-0.5); HEMATOCRIT 43.3 % (36.0-47.0); HEMOGLOBIN 14.5 g/dl (12.0-15.5); LYMPH # 2.5 10^3/uL (1.5-5.0); LYMPH % 29.4 % (24.0-44.0); MEAN CORPUSCULAR HEMOGLOBIN 31.6 pg (27.0-33.0); MEAN CORPUSCULAR HGB CONC 33.5 g/dl (32.0-36.5); MEAN CORPUSCULAR VOLUME 94.3 fl (80.0-96.0); MONO # 0.8 10^3/uL (0.0-0.8); MONO % 9.2 % (2.0-8.0); NEUTROPHILS # 4.8 10^3/uL (1.5-8.5); NEUTROPHILS % 57.3 % (36.0-66.0); PLATELET COUNT, AUTOMATED 311 10^3/uL (150-450); RED BLOOD COUNT 4.59 10^6/uL (4.00-5.40); WHITE BLOOD COUNT 8.4 10^3/uL (4.0-10.0)
[2023-07-09 17:08] LABS: IRON (FE) 35 UG/DL (50-170)
[2023-07-09 17:09] LABS: ALBUMIN 3.5 G/DL (3.2-5.2); ALKALINE PHOSPHATASE 59 U/L (46-116); ALT/SGPT 31 U/L (7.0-40); AST/SGOT 14 U/L (<34); BILIRUBIN,TOTAL 0.4 MG/DL (0.3-1.2); BLOOD UREA NITROGEN 13 MG/DL (9-23); CALCIUM LEVEL 8.7 MG/DL (8.5-10.1); CARBON DIOXIDE LEVEL 27 MMOL/L (20-31); CHLORIDE LEVEL 107 MMOL/L (98-107); GLOMERULAR FILTRATION RATE > 60.0 (>60); GLUCOSE, FASTING 100 MG/DL (60-100); PERCENT SATURATION 10.7 % (13.2-45.0); POTASSIUM SERUM 4.4 MMOL/L (3.5-5.1); SODIUM LEVEL 140 MMOL/L (136-145); TOTAL IRON BINDING CAPACITY 328 UG/DL (250-425); TOTAL PROTEIN 6.6 G/DL (5.7-8.2)
[2023-07-09 17:10] LABS: FERRITIN 44.4 NG/ML (7.3-270.7)
== END ==
LOC: M WUC 12:25
PROVIDERS: ATTEND Nurse Practitioner Family
DX: R53.83 Other fatigue (principal); R05.9 Cough, unspecified

== ENCOUNTER 2023-08-16 22:14 | Emergency (ER) | payer OTHER ==
[~2023-08-16] VITALS: Ht 167.6 cm; Wt 64.7 kg
[2023-08-17] MEDS: IBUPROFEN 600MG TAB PO ONE (01:25)
[2023-08-17 02:14] VITALS: BP 122/69; TEMP 98.1; O2SAT 100
== END 2023-08-17 01:40 | disposition home or self-care (01) ==
LOC: M ED 22:14
DX: S67.22XA Crushing injury of left hand, initial encounter (principal); Y92.9 Unspecified place or not applicable; Y93.9 Activity, unspecified; Y99.0 Civilian activity done for income or pay; I10 Essential (primary) hypertension; Z88.0 Allergy status to penicillin; Z79.810 Long term (current) use of selective estrogen receptor modulators (SERMs); Z79.899 Other long term (current) drug therapy

== ENCOUNTER → 2024-01-14 | Outpatient (CLI) | payer MEDICAID, OTHER | LOC: M RAD 15:12 | PROVIDERS: ATTEND Physician Assistant | DX: M25.511 Pain in right shoulder (principal); M25.512 Pain in left shoulder ==

== ENCOUNTER → 2024-05-12 | Outpatient (REF) | payer OTHER, MEDICAID ==
[2024-05-12 21:06] LABS: C REACTIVE PROTEIN QUANTITATIV < 0.50 MG/DL (<1.0)
[2024-05-12 21:07] LABS: BASO # 0.1 10^3/uL (0.0-0.2); BASO % 0.7 % (0.0-1.0); EOS # 0.1 10^3/uL (0.0-0.5); EOS % 0.5 % (0.0-3.0); HEMATOCRIT 44.2 % (36.0-47.0); HEMOGLOBIN 14.5 g/dl (12.0-15.5); LYMPH # 2.8 10^3/uL (1.5-5.0); LYMPH % 24.7 % (24.0-44.0); MEAN CORPUSCULAR HEMOGLOBIN 30.9 pg (27.0-33.0); MEAN CORPUSCULAR HGB CONC 32.8 g/dl (32.0-36.5); MEAN CORPUSCULAR VOLUME 94.2 fl (80.0-96.0); MONO # 0.8 10^3/uL (0.0-0.8); NEUTROPHILS # 7.6 10^3/uL (1.5-8.5); NEUTROPHILS % 66.7 % (36.0-66.0); PLATELET COUNT, AUTOMATED 364 10^3/uL (150-450); RED BLOOD COUNT 4.69 10^6/uL (4.00-5.40); TOTAL IRON BINDING CAPACITY 337 UG/DL (250-425); WHITE BLOOD COUNT 11.4 10^3/uL (4.0-10.0)
[2024-05-12 21:08] LABS: IRON (FE) 52 UG/DL (50-170); PERCENT SATURATION 15.4 % (13.2-45.0)
[2024-05-12 21:11] LABS: FERRITIN 43.6 NG/ML (7.3-270.7); THYROID STIMULATING HORMONE 0.875 uIU/ML (0.55-4.78); TOTAL 25(OH) VITAMIN D 30.3 NG/ML (20.0-100.0)
[2024-05-12 21:20] LABS: ERYTHROCYTE SEDIMENTATION RATE 5 mm/hr (0-20)
[2024-05-12 21:41] LABS: ALKALINE PHOSPHATASE 66 U/L (35-104); ALT/SGPT 23 U/L (7.0-40); AST/SGOT 14 U/L (<34); BILIRUBIN,TOTAL 0.4 MG/DL (0.3-1.2); BLOOD UREA NITROGEN 9 MG/DL (9-23); CALCIUM LEVEL 9.1 MG/DL (8.5-10.1); CARBON DIOXIDE LEVEL 27 MMOL/L (20-31); CHLORIDE LEVEL 105 MMOL/L (98-107); CREATININE FOR GFR 0.69 MG/DL (0.55-1.30); GLOMERULAR FILTRATION RATE > 60.0 (>60); GLUCOSE, FASTING 79 MG/DL (60-100); POTASSIUM SERUM 4.3 MMOL/L (3.5-5.1); SODIUM LEVEL 141 MMOL/L (136-145); TOTAL PROTEIN 7.2 G/DL (5.7-8.2)
[2024-05-12 21:49] LABS: RHEUMATOID FACTOR QUANT 3.5 IU/ML (<14)
== END ==
LOC: M LAB REF 18:16
PROVIDERS: ATTEND Physician Assistant
DX: M25.50 Pain in unspecified joint (principal)

== ENCOUNTER → 2024-07-16 | Outpatient (REF) | payer OTHER | LOC: M SFHCADAM 16:56 | PROVIDERS: ATTEND Nurse Practitioner Family | DX: L02.91 Cutaneous abscess, unspecified (principal) ==

== ENCOUNTER → 2024-09-29 | Outpatient (CLI) | payer OTHER ==
[~2024-09-29] MED LIST changes: +ISOVUE-300 61% 100 ML VIAL As Ordered ONE; +LIDOCAINE 1% MDV 20 ML VIAL As Ordered ONE; +PROHANCE 279.3MG/ML 5ML VIAL As Ordered ONE
== END ==
LOC: M RAD 12:04
PROVIDERS: ATTEND Orthopaedic Surgery
DX: M16.0 Bilateral primary osteoarthritis of hip (principal); M51.370 Other intervertebral disc degeneration, lumbosacral region with discogenic back pain only; S73.102A Unspecified sprain of left hip, initial encounter; X58.XXXA Exposure to other specified factors, initial encounter; Y92.9 Unspecified place or not applicable
CPT/HCPCS: 27093; 73723; 77002; A9576; Q9967